=== PATIENT | female | born 1950 | race Caucasian/White ===

== ENCOUNTER 2018-01-18 14:19 | Emergency (ER) | payer MEDICARE, OTHER ==
[2018-01-18 14:52] LABS: #Basophils 0.1 thou/uL (0.0-0.2); #Lymphocytes 1.6 thou/uL (1.20-3.40); #Monocytes 0.2 thou/uL (0.11-0.59); #Neutrophils 2.1 thou/uL (1.40-6.50); %Basophils 2.5 % (0.0-1.0); %Eosinophils 1.1 % (0.0-10.0); %Monocytes 5.6 % (0.0-10.0); %Neutrophils 51.8 % (42.0-75.0); Hemoglobin 14.3 g/dL (12.0-16.0); Mean Corpuscular HGB CONC 35.2 g/dL (32.0-36.0); Mean Corpuscular Hemoglobin 30.1 pg (27.0-31.0); Mean Corpuscular Volume 85.5 fL (78.0-98.0); Mean Platelet Volume 5.2 fL (7.4-10.4); Platelet Count 287 thou/uL (130-400); RBC Distribution Width 12.5 % (11.5-14.5); Red Blood Cell (RBC) Count 4.74 mill/uL (4.20-5.40)
[2018-01-18 15:21] LABS: ALT (SGPT) Less than 7 U/L (8-55); AST (SGOT) 13 U/L (5-34); Alkaline Phosphatase 61 U/L (40-150); Anion Gap 15 mmol/L (10-20); BUN (Urea Nitrogen) 14 mg/dL (9.8-20.1); Bilirubin, Total 0.5 mg/dL (0.2-1.2); Calc. Creatinine Clearance 0 mL/min (70-130); Calcium 9.7 mg/dL (7.8-10.44); Carbon Dioxide 25 mmol/L (23-31); Chloride 95 mmol/L (98-107); Estimated GFR-MDRD Greater than 90; Globulin 2.6 g/dL (2.4-3.5); Glucose 88 mg/dL (80-115); Potassium 5.1 mmol/L (3.5-5.1); Protein, Total 6.6 g/dL (6.0-8.3); Sodium 130 mmol/L (136-145)
[2018-01-18 15:22] LABS: CKMB 1.7 ng/mL (0-6.6); Troponin I Less than 0.010 ng/mL (< 0.028)
== END 2018-01-18 17:04 | disposition home or self-care (01) ==
LOC: BURERS 14:19
DX: R41.82 Altered mental status, unspecified (principal); I10 Essential (primary) hypertension; J44.9 Chronic obstructive pulmonary disease, unspecified; E78.5 Hyperlipidemia, unspecified; F17.210 Nicotine dependence, cigarettes, uncomplicated; F31.9 Bipolar disorder, unspecified; F41.9 Anxiety disorder, unspecified; Z79.899 Other long term (current) drug therapy
CPT/HCPCS: 80053; 82553; 84484; 85025; 93005; 96360

== ENCOUNTER 2019-07-29 18:53 | Emergency (ER) | payer MEDICARE, OTHER ==
[2019-07-29] MEDS ORDERED: Morphine 4 MG/ML VIAL ONE (19:38)
== END 2019-07-29 20:04 | disposition home or self-care (01) ==
LOC: BURERS 18:53
DX: S29.012A Strain of muscle and tendon of back wall of thorax, initial encounter (principal); I10 Essential (primary) hypertension; J44.9 Chronic obstructive pulmonary disease, unspecified; E78.5 Hyperlipidemia, unspecified; F17.210 Nicotine dependence, cigarettes, uncomplicated; Z79.899 Other long term (current) drug therapy; X58.XXXA Exposure to other specified factors, initial encounter
CPT/HCPCS: 96372; 99283; J2270

== ENCOUNTER 2019-11-09 22:33 | Emergency (ER) | payer MEDICARE, OTHER ==
[2019-11-09] MEDS ORDERED: Ketorolac Tromethamine 30 MG/ML VIAL ONE (22:59)
--- NOTE | 2019-11-10 12:08 | RAD ---
CHEST 2 VIEWS: DATE: 11/09/2019. COMPARISON: Comparison is made with a and 08/14/2019 studies. FINDINGS: Emphysematous changes are present as usual. The lungs are clear. No effusions or acute infiltrates were seen. The heart size is normal. Regarding the ribs, some old healed fractures of the right 7th and 8th ribs are noted and visible on at least the prior study. The other ribs appear grossly intact. There may be an injury to the left 9th rib posterolaterally, but I am not convinced that it is new. Arteriosclerotic change is seen in the aorta. IMPRESSION: No definite acute findings. See above. POS: HOME
--- NOTE | 2019-11-10 12:10 | RAD ---
LUMBAR SPINE 3 VIEWS: DATE: 11/09/2019. FINDINGS: There is a mild compression of the L2 vertebral body, mainly involving the superior end plate. This was not present on a 2010 study. The bones are osteoporotic. There is no dislocation of vertebrae o r disk space narrowing. The SI joints were unremarkable. The aorta is densely calcified. There is a very large amount of fecal material in the colon. IMPRESSION: 1. Mild L2 compression fracture, age indeterminate but has occurred since 2009. 2. Severe constipation. CODE T POS: HOME
== END 2019-11-09 23:31 | disposition home or self-care (01) ==
LOC: BURERS 22:33
DX: M54.6 Pain in thoracic spine (principal); M54.5 Low back pain; G89.29 Other chronic pain; I10 Essential (primary) hypertension; J44.9 Chronic obstructive pulmonary disease, unspecified; E78.5 Hyperlipidemia, unspecified; F31.9 Bipolar disorder, unspecified; F41.9 Anxiety disorder, unspecified; F17.210 Nicotine dependence, cigarettes, uncomplicated; Z79.899 Other long term (current) drug therapy
CPT/HCPCS: 71046; 72100; 96372; J1885

== ENCOUNTER 2020-01-16 16:36 | Emergency (ER) | payer MEDICARE, OTHER ==
[2020-01-16] MEDS ORDERED: Ketorolac Tromethamine 30 MG/ML VIAL ONE (16:59)
== END 2020-01-16 17:22 | disposition home or self-care (01) ==
LOC: BURERS 16:36
DX: M54.6 Pain in thoracic spine (principal); E78.5 Hyperlipidemia, unspecified; J44.9 Chronic obstructive pulmonary disease, unspecified; F41.9 Anxiety disorder, unspecified; F31.9 Bipolar disorder, unspecified; F17.210 Nicotine dependence, cigarettes, uncomplicated; I10 Essential (primary) hypertension; Z71.6 Tobacco abuse counseling; Z79.51 Long term (current) use of inhaled steroids; Z79.899 Other long term (current) drug therapy
CPT/HCPCS: 96372; 99406; J1885

== ENCOUNTER 2020-05-11 17:51 | Emergency (ER) | payer MEDICARE, OTHER ==
[2020-05-11] MEDS ORDERED: methylPREDNISolone Sod Succ/PF 125 MG/2 ML VIAL ONE (18:27)
[2020-05-11 18:33] LABS: #Basophils 0.1 thou/uL (0.0-0.2); #Eosinphils 0.1 thou/uL (0.0-0.7); #Lymphocytes 2.1 thou/uL (1.20-3.40); #Monocytes 0.5 thou/uL (0.11-0.59); #Neutrophils 3.7 thou/uL (1.40-6.50); %Basophils 1.5 % (0.0-1.0); %Eosinophils 1.3 % (0.0-10.0); %Lymphocytes 32.1 % (21.0-51.0); %Monocytes 8.2 % (0.0-10.0); %Neutrophils 56.9 % (42.0-75.0); Hemoglobin 13.7 g/dL (12.0-16.0); Mean Corpuscular HGB CONC 32.1 g/dL (32.0-36.0); Mean Corpuscular Hemoglobin 31.6 pg (27.0-31.0); Mean Corpuscular Volume 98.5 fL (78.0-98.0); Mean Platelet Volume 5.5 fL (7.4-10.4); Platelet Count 278 thou/uL (130-400); RBC Distribution Width 12.2 % (11.5-14.5); Red Blood Cell (RBC) Count 4.35 mill/uL (4.20-5.40); White Blood Cell (WBC) Count 6.5 thou/uL (4.8-10.8)
[2020-05-11 18:46] LABS: ALT (SGPT) 17 U/L (8-55); AST (SGOT) 17 U/L (5-34); Albumin 3.8 g/dL (3.4-4.8); Alkaline Phosphatase 76 U/L (40-110); Anion Gap 14 mmol/L (10-20); BUN (Urea Nitrogen) 16 mg/dL (9.8-20.1); Bilirubin, Total 0.3 mg/dL (0.2-1.2); Calc. Creatinine Clearance 0 mL/min (70-130); Calcium 9.4 mg/dL (7.8-10.44); Carbon Dioxide 24 mmol/L (23-31); Chloride 107 mmol/L (98-107); Estimated GFR-MDRD 73; Globulin 2.2 g/dL (2.4-3.5); Glucose 124 mg/dL (83-110); Sodium 141 mmol/L (136-145)
--- NOTE | 2020-05-11 19:02 | RAD ---
PORTABLE CHEST: 05/11/20 An AP portable film at 1814 is compared with a 04/14/20 study. The heart is normal in size. The lungs are quite hyperexpanded but clear. No acute infiltrate was see n to suggest pneumonia. The aorta is mildly ectatic as usual. IMPRESSION: Emphysematous changes but no acute findings. POS: HOME
== END 2020-05-11 19:25 | disposition home or self-care (01) ==
LOC: BURERS 17:51
DX: J44.1 Chronic obstructive pulmonary disease with (acute) exacerbation (principal); I10 Essential (primary) hypertension; E78.5 Hyperlipidemia, unspecified; F31.9 Bipolar disorder, unspecified; F41.9 Anxiety disorder, unspecified; F17.210 Nicotine dependence, cigarettes, uncomplicated; Z79.899 Other long term (current) drug therapy
CPT/HCPCS: 36415; 71045; 80053; 83605; 83880; 84484; 85025; 85379; 87040; 93005; 94760; 96374; J2930

== ENCOUNTER 2020-07-19 07:55 | Observation (INO) | payer MEDICARE, OTHER ==
[2020-07-19] MEDS ORDERED: Albuterol Sulfate 1.25 MG/3 ML NEB ONE ×2 (08:23→09:08)
[2020-07-19] MEDS ORDERED: Acetaminophen 500 MG TAB ONE (08:28)
[2020-07-19] MEDS ORDERED: methylPREDNISolone Sod Succ/PF 125 MG/2 ML VIAL ONE (08:29)
[2020-07-19] MEDS ORDERED: Magnesium 2 GM/50 ML BAG (IN WATER) ONE (08:30)
[2020-07-19 08:44] LABS: Hemoglobin 16.3 g/dL (12.0-16.0); Mean Corpuscular HGB CONC 32.2 g/dL (32.0-36.0); Mean Corpuscular Hemoglobin 31.5 pg (27.0-31.0); Mean Corpuscular Volume 97.9 fL (78.0-98.0); Mean Platelet Volume 5.7 fL (7.4-10.4); Platelet Count 303 thou/uL (130-400); RBC Distribution Width 12.3 % (11.5-14.5); Red Blood Cell (RBC) Count 5.19 mill/uL (4.20-5.40); White Blood Cell (WBC) Count 10.2 thou/uL (4.8-10.8)
[2020-07-19 08:46] LABS: ALT (SGPT) 18 U/L (8-55); AST (SGOT) 19 U/L (5-34); Albumin 4.6 g/dL (3.4-4.8); Alkaline Phosphatase 90 U/L (40-110); Anion Gap 17 mmol/L (10-20); BUN (Urea Nitrogen) 11 mg/dL (9.8-20.1); Bilirubin, Total 0.5 mg/dL (0.2-1.2); Calc. Creatinine Clearance 0 mL/min (70-130); Calcium 9.7 mg/dL (7.8-10.44); Carbon Dioxide 26 mmol/L (23-31); Chloride 104 mmol/L (98-107); Glucose 97 mg/dL (83-110); Potassium 4.6 mmol/L (3.5-5.1); Protein, Total 7.6 g/dL (6.0-8.3); Sodium 142 mmol/L (136-145)
[2020-07-19] MEDS ORDERED: traMADol HCl 50 MG TAB ONE (09:07)
[2020-07-19] MEDS ORDERED: Ondansetron PF 4 MG/2 ML Vial ONE (09:08)
[2020-07-19 09:13] LABS: Band 7 % (5-11); Eosinophils 1 % (0-10); Lymphocytes 10 % (21-51); MDiff Complete? YES; Monocytes 5 % (0-10); Neutrophil 75 % (42-75)
[2020-07-19 09:22] LABS: Base Excess-Venous -0.7 mmol/L (-2.0 to 3.0); Bicarbonate (HCO3v) 23.8 mmol/L (22.0-28.0); CO2 Tension (PvCO2) 38.2 mmHg (40.0-50.0); Calcium, Ionized 1.04 mmol/L (1.15-1.33); Chloride 105 mmol/L (98-107); Hemoglobin - Calc 15.4 g/dL (12.0-16.0); Potassium 4.2 mmol/L (3.5-5.1); Sodium 135 mmol/L (138-145); vO2 Saturation-calc 99.7 % (60.0-85.0)
[2020-07-19] MEDS ORDERED: Levofloxacin 500 mg/D5W 100 ml Premix Bag ONE (09:50)
[2020-07-19 10:42] LABS: SARS-CoV-2 NAA Rapid Test Not Detected (NotDetected)
[2020-07-19] MEDS ORDERED: Propranolol HCl 20 MG TAB PO PRN (12:35)
[2020-07-19] MEDS ORDERED: Non-Formulary Item 1 EACH (Albuterol Sulfate [Proair Hfa] 8.5 GM Hfa.Aer.Ad) INH PRN (12:35)
[2020-07-19] MEDS ORDERED: Albuterol 200 PUFF (6.7GM INHALER) INH PRN (12:53)
[2020-07-19] MEDS ORDERED: Ondansetron PF 4 MG/2 ML Vial IVP PRN (14:10)
[2020-07-19] MEDS ORDERED: Ondansetron ODT 4 MG TAB PO PRN (14:11)
[2020-07-19] MEDS ORDERED: Acetaminophen 325 MG TAB PO PRN (14:12)
[2020-07-19] MEDS ORDERED: HYDROcodone/Acetaminophen 5/325 mg Tablet PO SCH (14:30)
[2020-07-19] MEDS: Nicotine 14 MG PATCH TOP SCH (15:24)
--- NOTE | 2020-07-19 17:14 | RAD ---
PORTABLE CHEST: 07/19/20 An AP portable film at 0859 is compared with a 07/03/20 study. COPD is present with flattening of the diaphragm. No acute infiltrate or effusion was seen. There is no vascular congestion or edema. The heart is not enlarged. At most, there may be some very minor ate lectasis on the right. IMPRESSION: COPD with no significant acute findings. POS: HOME
[2020-07-19] MEDS ORDERED: chlorproMAZINE HCl 12.5 MG in Sodium Chloride 0.9% 50 ML IVPB PRN (17:53)
[2020-07-19] MEDS ORDERED: diphenhydrAMINE 25 MG CAP PO PRN (17:55)
[2020-07-19] MEDS ORDERED: Mometasone/Formoterol 200/5 60 PUFF INH SCH (19:00)
[2020-07-19] MEDS ORDERED: Prochlorperazine 10 MG/2 ML VIAL IVP PRN (19:10)
[2020-07-19] MEDS: Mometasone/Formoterol 200/5 60 PUFF INH SCH (20:30)
[2020-07-19] MEDS: Benztropine 1 MG TAB PO SCH (20:33)
[2020-07-19] MEDS: traMADol HCl 50 MG TAB PO PRN (20:33)
[2020-07-19] MEDS ORDERED: Atorvastatin Calcium 10 MG TAB PO SCH ×2 (21:00)
[2020-07-19] MEDS ORDERED: Non-Formulary Item 1 EACH (Benztropine Mesylate [Benztropine Mesylate] 0.5 MG Tablet) PO SCH (21:00)
[2020-07-19] MEDS ORDERED: Montelukast Sodium 10 mg Tablet PO SCH (21:00)
[2020-07-19] MEDS: methylPREDNISolone Sod Succ/PF 125 MG/2 ML VIAL IVP SCH (22:18)
--- NOTE | 2020-07-20 00:17 | HP ---
CHIEF COMPLAINT: Shortness of breath. HISTORY OF PRESENT ILLNESS: Ms. Dowd is a 70-year-old female who was complaining of increased shortness of breath in the context of her usual COPD over the last week, worse this morning. She presented to the emergency room for further care. Chest x-ray shows COPD without acute infiltrates. She was rather tachypneic on presentation, but was able to maintain her sats with her home O2 regimen of 2 L. She has had some yellow sputum, but denies hemoptysis. She has not had fever or chills. No nausea, vomiting, diarrhea or any COVID positive contacts known. She is a smoker, but states that she stopped a week ago secondary to her symptoms. In the emergency department, she was given Tylenol for headache, normal saline, albuterol nebs, 125 mg Solu-Medrol IV, another DuoNeb, magnesium sulfate, tramadol for headache, other albuterol inhalation, IV Zofran, and Levaquin. Her lab results are unremarkable. PAST MEDICAL HISTORY: 1. Chronic obstructive pulmonary disease. 2. Hypertension. 3. Hyperlipidemia. 4. Tobacco abuse. 5. Marijuana abuse. 6. Anxiety. 7. Bipolar disorder. 8. Depression. PAST SURGICAL HISTORY: 1. Left breast biopsy. 2. Vulvectomy. 3. Appendectomy. 4. Carpal tunnel on the right. 5. Hysterectomy. 6. Oophorectomy of the left ovary. 7. Left knee arthroscopic surgery x2. 8. Tonsillectomy. 9. Neck fusion. 10. Bilateral hip césar placements. SOCIAL HISTORY: The patient smokes approximately half a pack of cigarettes per day. She smokes marijuana on occasion. She denies alcohol or other illicit drugs. FAMILY HISTORY: Noncontributory. REVIEW OF SYSTEMS: CONSTITUTIONAL: Positive for fatigue and malaise. Negative chills or fever. EYES: Denies blurring of vision. ENT: Complains of rhinorrhea. Denies sore throat or nasal congestion. CARDIOVASCULAR: Denies chest tightness, although she has had some discomfort associated with her cough only. No hemoptysis. No wheezing. Positive sputum, yellow in color. GI: Denies nausea, vomiting, diarrhea, constipation, blood in stool. GENITOURINARY: Denies dysuria or incontinence. SKIN: Denies rash. NEUROLOGIC: Denies weakness, numbness. No confusion. She has a generalized headache. HEMATOLOGIC: Denies easy bleeding or bruising. OBJECTIVE: VITAL SIGNS: On admission in the ED, blood pressure 170/88, heart rate 101, respirations 24, temperature 98.5, 8/10 pain, 98% on 2 L of oxygen. At my exam; temperature 98.1, pulse 80, respirations 18, O2 saturation 95% on 2 L nasal cannula, blood pressure 151/68. GENERAL: Well-developed, thin female, sitting up on the bedside. Alert and oriented x4, in no acute distress. HEENT: Normocephalic, atraumatic. Pupils equally round and reactive to light and accommodation, extraocular muscles intact. Nares are patent without discharge. Tongue protrudes in the midline. NECK: Supple without lymphadenopathy, thyromegaly, JVD, or bruit. HEART: Regular rate and rhythm with distant sounds. No murmurs, clicks, rubs, or gallops. LUNGS: Diminished air entry throughout with isolated expiratory wheeze at the right upper lobe. ABDOMEN: Positive bowel sounds in all 4 quadrants. Soft, nontender, nondistended. No masses, guarding, or rebound tenderness. EXTREMITIES: No cyanosis, clubbing, edema. NEUROLOGIC: Cranial nerves 2 through 12 grossly intact without focal deficits. LABORATORY DATA: White count 10.2, hemoglobin 16.3, hematocrit 50.8, platelets 303, sodium 142, potassium 4.6, chloride 104, bicarb 26, BUN 11, creatinine 0.7, glucose 97, calcium 9.7, T bilirubin 0.5, normal LFTs, troponin I less than 0.010, B type natriuretic peptide 108.8. Influenza A and B and SARS-CoV-2 rapid RNA not detected. IMAGING: Chest x-ray shows COPD with no significant acute findings. ASSESSMENT AND PLAN: 1. Acute exacerbation of chronic obstructive pulmonary disease. The patient was given 125 Solu-Medrol in the ER and will continue this 60 mg IV q.6 hours. We will continue DuoNebs and her home medications. We will give O2 at 2 L/minute and titrate as needed to maintain her sats in the low 90s. We will convert to oral prednisone when able. Cover with Levaquin daily. 2. Generalized headache. The patient has a history of this in the past for which she has taken Demerol and other narcotics. She received tramadol and Tylenol in the ER without improvement. I ordered a hydrocodone earlier and this did not help either. We will try chlorpromazine and Benadryl and see if this improves things. We will continue tramadol and Tylenol p.r.n. for breakthrough pain. 3. Hyperlipidemia. The patient will be continued on her statin therapy. 4. Bipolar disorder/depression/anxiety. The patient will be continued on her Cogentin, fluoxetine. 5. Hypertension. The patient will be continued on her propranolol. 6. Tobacco abuse. The patient has been given a nicotine patch and smoking cessation will be advised. 7. Prophylaxis. The patient has been placed on pantoprazole per her home regimen and we will give SCDs. May ambulate as tolerated. 8. Code status, full code. Job ID: [id number] MTDD
[2020-07-20] MEDS: methylPREDNISolone Sod Succ/PF 125 MG/2 ML VIAL IVP SCH ×2 (05:37→15:16)
[2020-07-20] MEDS: Benztropine 1 MG TAB PO SCH (08:56)
[2020-07-20] MEDS: Mometasone/Formoterol 200/5 60 PUFF INH SCH (08:59)
[2020-07-20] MEDS ORDERED: Non-Formulary Item 1 EACH (Fluticasone/Vilanterol [Breo Ellipta 200-25 Mcg Inh] 1 EACH Bl INH SCH (09:00)
[2020-07-20] MEDS ORDERED: Lisinopril 10 MG TAB PO SCH (09:00)
[2020-07-20] MEDS ORDERED: ATORVASTATIN CALCIUM 20 MG PO SCH (09:00)
[2020-07-20] MEDS ORDERED: Non-Formulary Item 1 EACH (Cholecalciferol (Vitamin D3) [Vitamin D3] 50 MCG Capsule) PO SCH (09:00)
[2020-07-20] MEDS ORDERED: FLUOXETINE HCL 20 MG PO SCH (09:00)
[2020-07-20] MEDS ORDERED: Vit A,C & E/Lutein/Minerals Tablet PO SCH (09:00)
[2020-07-20] MEDS ORDERED: Tamsulosin HCl 0.4 MG CAP PO SCH (09:00)
[2020-07-20] MEDS ORDERED: FLUoxetine HCl 10 MG CAP PO SCH (09:00)
[2020-07-20] MEDS ORDERED: Cholecalciferol 1,000 UNITS (25 MCG) TAB PO SCH (09:00)
[2020-07-20] MEDS ORDERED: [UNRECOGNIZED DRUG - OTHER] PO SCH (09:00)
[2020-07-20] MEDS: traMADol HCl 50 MG TAB PO PRN (09:08)
[2020-07-20] MEDS: FLU VACC QS2020-21(65YR UP)/PF 240 MCG/0.7 ML SYRINGE IM ONE ×2 (12:14→12:24)
[2020-07-20 16:28] VITALS: BP 162/74
[2020-07-20 16:29] VITALS: TEMP 98.7
[2020-07-20] MEDS: Nicotine 14 MG PATCH TOP SCH (16:33)
--- NOTE | 2020-07-21 01:24 | DIS ---
DATE OF ADMISSION: 07/19/2020 DATE OF DISCHARGE: 07/20/2020 ADMISSION DIAGNOSES: 1. Chronic obstructive pulmonary disease exacerbation. 2. Acute respiratory failure with hypoxia. 3. Hypertension. 4. Chronic headache. 5. Tobacco abuse. 6. Bipolar disorder. 7. Hyperlipidemia. 8. Mood disorder. DISCHARGE DIAGNOSES: 1. Chronic obstructive pulmonary disease exacerbation. 2. Acute respiratory failure with hypoxia. 3. Hypertension. 4. Chronic headache. 5. Tobacco abuse. 6. Bipolar disorder. 7. Hyperlipidemia. 8. Mood disorder. PROCEDURES: 1. Chest x-ray performed on day of admission shows COPD with no acute findings. 2. Influenza A and B and SARS-CoV-2 rapid RNA not detected. 3. CBC significant for hemoglobin 16.3, hematocrit 50.8, otherwise unremarkable. 4. Chemistry profile unremarkable. 5. B-type natriuretic peptide 108.8, which is down from the patient's baseline of 311.1 previously. For history and physical, please see dictated report from the date of admission. OBSERVATION COURSE: Ms. Dowd is a 70-year-old female, who came in with worsening shortness of breath, cough with scant yellow sputum production for approximately 1 week. She was on her home O2 requirement of 2 L on admission but was tachypneic and given [id number] neb treatments. She was provided Levaquin IV 500 mg for antimicrobial coverage and placed on Solu-Medrol. The following day, she is breathing much better. Her lungs are clear to auscultation without wheezes with diminished air entry throughout that is likely chronic. She will be discharged on a five-day additional course of Levaquin and a two-week prednisone taper. She also had some elevated blood pressure while here. Her lisinopril will be increased to 20 mg daily and can be followed up with her primary care physician for repeat. Systolic blood pressures ranged 130s to 150s during her hospital stay. The patient has significant tobacco abuse history and has elevated hemoglobin, hematocrit. She has been extensively counseled on smoking cessation. She was provided a nicotine patch while here. She reports that she has nicotine patches at home that she will continue as an outpatient. The patient has a history of chronic headaches, for which she has presented to the emergency department for treatment in the past. We attempted Tylenol, tramadol, hydrocodone, chlorpromazine, and Benadryl with no benefit. The patient smokes marijuana for her headaches and takes ibuprofen at home. She rates this headache as mild and is generalized. She can follow up with her primary care doctor regarding further attempted treatment as an outpatient. Her neurological exam is completely normal. Her blood pressure may be contributing as well as the IV steroids, so this should improve with outpatient regimen. She has been instructed to return if it becomes more severe or if she has any concurrent neurological symptoms. Regarding her hypoxia, she has 2 L baseline O2 requirement at home and has both a concentrator and portable O2. At her discharge examination, her O2 saturation was 97% on 2 L/min. Her respiratory rate has been stable at 18 to 20 breaths per minute, and she is no longer tachypneic or using accessory muscles. Regarding her other chronic medical problems, her regimen remains the same. DISCHARGE EXAMINATION: VITAL SIGNS: Temperature 96.8, pulse 97, blood pressure 153/69, respirations 20, O2 saturation 97% on 2 L nasal cannula. GENERAL: Well-developed, thin, female, in no acute distress. Speaks in complete sentences. HEENT: Normocephalic, atraumatic. Pupils equally round and reactive to light and accommodation, extraocular muscles intact. Nares are patent without discharge. CHEST: Regular rate and rhythm with normal S1, S2. No murmurs, clicks, rubs, or gallops, but with distant heart sounds. LUNGS: Diminished throughout but clear to auscultation without crackles or wheezes. ABDOMEN: Positive bowel sounds in all four quadrants. Soft, nontender, and nondistended. No masses, guarding, or rebound tenderness. EXTREMITIES: No cyanosis, clubbing, or edema. NEUROLOGIC: Cranial nerves II through XII grossly intact without focal deficits. LABS AND IMAGING: No new lab or imaging today. DISPOSITION: Discharged to home. CONDITION: Good. DISCHARGE INSTRUCTIONS: Follow up with primary care physician Dr. Richar Murillo in approximately 10 days to reassess the need for further prednisone taper and blood pressure reassessment on new dose. Job ID: [id number]
== END 2020-07-20 16:47 | disposition home or self-care (01) ==
LOC: BURERS 07:55 → UNDOADMOB 09:50 → BURMED 09:50
PROVIDERS: ADMIT Family Medicine; ATTEND Family Medicine
DX: J44.1 Chronic obstructive pulmonary disease with (acute) exacerbation (principal); J96.01 Acute respiratory failure with hypoxia; I10 Essential (primary) hypertension; R51.9 Headache, unspecified; F17.210 Nicotine dependence, cigarettes, uncomplicated; F31.9 Bipolar disorder, unspecified; E78.5 Hyperlipidemia, unspecified; F41.9 Anxiety disorder, unspecified; Z79.899 Other long term (current) drug therapy; Z88.0 Allergy status to penicillin; Z88.5 Allergy status to narcotic agent; Z88.6 Allergy status to analgesic agent; Z88.8 Allergy status to other drugs, medicaments and biological substances; Z20.822 Contact with and (suspected) exposure to COVID-19
CPT/HCPCS: 0240U; 71045; 80053; 82330; 82803; 83880; 84484; 85025; 90471; 90662; 90732; 94640; 94664; 96365; 96367; 96375; 96376; G0008; G0009; G0378; J1956; J2405; J2930; J3475; J7620; Q0163

== ENCOUNTER 2020-07-21 10:26 | Inpatient (IN) | payer MEDICARE, OTHER ==
[2020-07-21] MEDS ORDERED: Magnesium 2 GM/50 ML BAG (IN WATER) ONE (10:54)
[2020-07-21] MEDS ORDERED: Albuterol Sulfate 1.25 MG/3 ML NEB ONE (10:54)
[2020-07-21 11:59] LABS: #Lymphocytes 1.1 thou/uL (1.20-3.40); #Monocytes 0.6 thou/uL (0.11-0.59); #Neutrophils 11.9 thou/uL (1.40-6.50); %Basophils 0.4 % (0.0-1.0); %Lymphocytes 7.7 % (21.0-51.0); %Monocytes 4.1 % (0.0-10.0); %Neutrophils 87.8 % (42.0-75.0); Hemoglobin 14.5 g/dL (12.0-16.0); Mean Corpuscular HGB CONC 31.3 g/dL (32.0-36.0); Mean Corpuscular Hemoglobin 30.9 pg (27.0-31.0); Mean Corpuscular Volume 98.6 fL (78.0-98.0); Mean Platelet Volume 6.4 fL (7.4-10.4); Platelet Count 285 thou/uL (130-400); RBC Distribution Width 12.3 % (11.5-14.5); Red Blood Cell (RBC) Count 4.69 mill/uL (4.20-5.40); White Blood Cell (WBC) Count 13.6 thou/uL (4.8-10.8)
[2020-07-21 12:10] LABS: Anion Gap 13 mmol/L (10-20); BUN (Urea Nitrogen) 12 mg/dL (9.8-20.1); Calc. Creatinine Clearance 0 mL/min (70-130); Calcium 9.3 mg/dL (7.8-10.44); Carbon Dioxide 29 mmol/L (23-31); Chloride 102 mmol/L (98-107); Glucose 90 mg/dL (83-110); Potassium 4.3 mmol/L (3.5-5.1); Sodium 140 mmol/L (136-145)
[2020-07-21 13:10] LABS: SARS-CoV-2 NAA Rapid Test Not Detected (NotDetected)
[2020-07-21] MEDS ORDERED: Albuterol Sulfate 2.5 mg/3 ml Neb NEB PRN (13:32)
[2020-07-21] MEDS ORDERED: Bisacodyl 5 MG TAB PO PRN (13:32)
[2020-07-21] MEDS ORDERED: Ondansetron ODT 4 MG TAB PO PRN (13:32)
[2020-07-21] MEDS ORDERED: Senokot S 8.6-50 MG TAB PO PRN (13:32)
[2020-07-21] MEDS ORDERED: Levofloxacin 750 mg/D5W 500 MG in Premix Bag 1 BAG IVPB SCH (13:45)
[2020-07-21] MEDS ORDERED: Promethazine 25 MG TAB PO PRN (13:58)
[2020-07-21] MEDS: Lisinopril 20 MG TAB PO SCH (15:43)
[2020-07-21] MEDS: Nicotine 14 MG PATCH TD SCH (15:45)
[2020-07-21] MEDS: Mometasone/Formoterol 200/5 60 PUFF INH SCH (18:28)
[2020-07-21] MEDS: methylPREDNISolone Sod Succ 40 MG VIAL IVP SCH (18:28)
--- NOTE | 2020-07-21 20:11 | HP ---
CHIEF COMPLAINT: Shortness of breath and cough. HISTORY OF THE PRESENT ILLNESS: Ms. Dowd is a 70-year-old female with a history of COPD, hypertension, and tobacco abuse, who was in observation here at [facility] on July 19. She was discharged the following day for treatment of COPD exacerbation, acute, with chronic hypoxia. She was treated with Levaquin and IV steroids, neb treatments, O2 p.r.n., and was improved on the date of discharge with diminished cough, no shortness of breath and lungs were clear to auscultation. She was given a prescription for Levaquin and a prednisone taper for 2 weeks, as well as an increased dose of her lisinopril as her blood pressure ran high while she was here. She reports that upon returning home, she promptly removed her nicotine transdermal patch and attempted to smoke. She estimates that she tried to smoke approximately 7 to 10 cigarettes, but was unable to do so due to recurrence of symptoms. Subsequently, her cough, sputum production, and shortness of breath increased. She reports her sputum is thicker now. She has a past medical history of endotracheal intubation for COPD. During her prior admission, her chest x-ray was without acute infiltrates. She denies any COVID positive contacts and was screened during that admission and was negative for COVID as well as influenza A and B. She presented today tachypneic and required 4 L to improve her O2. With neb treatments in the emergency room, magnesium, normal saline, and Levaquin, she was able to be put back on her home O2 rate of 2 L/min. She is being admitted for further treatment of acute exacerbation of COPD with [id number] hypoxic respiratory failure. Her COVID repeat screen today was negative. PAST MEDICAL HISTORY: 1. COPD. 2. Hypertension. 3. Hyperlipidemia. 4. Tobacco abuse. 5. Marijuana abuse. 6. Anxiety. 7. Bipolar disorder. 8. Depression. 9. Chronic headaches. PAST SURGICAL HISTORY: 1. Left breast biopsy. 2. Vulvectomy. 3. Appendectomy. 4. Carpal tunnel on the right. 5. Hysterectomy. 6. Oophorectomy of the left ovary. 7. Left knee arthroscopic surgery x2. 8. Tonsillectomy. 9. Neck fusion. 10. Bilateral hip césar placements. SOCIAL HISTORY: The patient reports she smokes approximately half a pack of cigarettes per day. She smokes marijuana on occasion to help with her headaches. She denies alcohol or other illicit drugs. FAMILY HISTORY: Noncontributory. ALLERGIES: ALEVE, WHICH CAUSES HIVES; DEMEROL; MEPERIDINE; NAPROXEN; PENICILLIN, WHICH CAUSES HIVES; SUMATRIPTAN, WHICH CAUSES SHORTNESS OF BREATH. MEDICATIONS: 1. Tamsulosin 0.4 mg p.o. daily. 2. Propranolol HCl 20 mg p.o. b.i.d. 3. Pantoprazole one p.o. daily. 4. Multivitamin one p.o. daily. 5. Singulair 10 mg p.o. at bedtime. 6. Myrbetriq 25 mg p.o. daily. 7. Lisinopril 20 mg p.o. daily. 8. DuoNeb 3 mL nebulized q.6 hours p.r.n. 9. Breo Ellipta 200-25 mcg inhaled one puff daily. 10. Fluoxetine 40 mg p.o. daily. 11. Vitamin D3 of 2000 units p.o. daily. 12. Benztropine mesylate 0.5 mg p.o. b.i.d. 13. Atorvastatin calcium 20 mg p.o. daily. 14. ProAir HFA two puffs inhaled q.i.d. p.r.n. 15. Acetaminophen 650 mg p.o. q.4 hours p.r.n. 16. The patient had prednisone taper this still at the pharmacy, so she did not start it as well as prescription for Levaquin. REVIEW OF SYSTEMS: CONSTITUTIONAL: Positive for fatigue and malaise. Negative for chills or fever. EYES: Denies blurring of vision or conjunctival injection or drainage. ENT: She did have some rhinorrhea initially on admission. This is no longer present. She denies sore throat or nasal congestion. CARDIOVASCULAR: Denies chest pain or palpitations. RESPIRATORY: Denies hemoptysis. Positive wheezing. Positive yellow sputum. Positive shortness of breath with exertion. GI: Denies nausea, vomiting, diarrhea, constipation, or blood in her stool. GENITOURINARY: Denies dysuria or incontinence. SKIN: Denies rash. NEUROLOGIC: Denies weakness, numbness, or confusion. She still has chronic generalized headache. HEMATOLOGIC: Denies easy bleeding or bruising. LYMPHATIC: Denies any swelling or lymphadenopathy. PHYSICAL EXAMINATION: VITAL SIGNS: On presentation to the emergency room; blood pressure 175/102, pulse 87, respirations 26, temperature 98.0, saturations 100% on 2 L O2. GENERAL: Well-developed thin female, who is alert and oriented x3. She is in mild distress secondary to cough. HEENT: Normocephalic, atraumatic. Pupils are equal, round, and reactive to light and accommodation. Extraocular muscles intact. Nares are patent without discharge. OP is clear. NECK: Supple without lymphadenopathy, thyromegaly, JVD, or bruit. CARDIOVASCULAR: Regular rate and rhythm with distant heart sounds. No murmurs. LUNGS: Diminished air entry throughout with bibasilar expiratory wheezing and increased expiratory to inspiratory ratio. She has barrel chest appearance. ABDOMEN: Positive bowel sounds in all four quadrants. Soft, nontender, and nondistended. No masses, guarding, or rebound tenderness. EXTREMITIES: No cyanosis, clubbing, or edema. NEUROLOGIC: Cranial nerves 2 through 12 grossly intact. No focal deficits. LABORATORY DATA: White count 13.6 with 88% neutrophils, 7.7% lymphocytes, hemoglobin 14.5, hematocrit 46.2, platelets 285. Sodium 140, potassium 4.3, chloride 102, bicarb 29, BUN 12, creatinine 0.65, glucose 90, calcium 9.3. Influenza A, B, and SARS-CoV-2 rapid RNA PCR negative. ASSESSMENT AND PLAN: 1. Acute exacerbation of chronic obstructive pulmonary disease with [id number] hypoxic respiratory failure without hypercapnia. The patient again will be admitted to the floor and placed on IV Levaquin to continue her course. We will continue Solu-Medrol at 60 mg IV q.6 hours p.r.n. and convert to oral when able. Continue neb treatments of DuoNeb q.6 hours and albuterol q.2 hours p.r.n. We will continue her home regimen for chronic obstructive pulmonary disease. Give supportive O2. 2. Hypertension. The patient did take her increased dose of lisinopril this morning. She will be given hydralazine p.r.n. for elevated blood pressure while we are monitoring. She will be continued on her other home blood pressure medication. 3. Hyperlipidemia. The patient will be continued on her statin. 4. Tobacco abuse. I spent extensive time counseling her today and she states that she just needs to make her mind up to quit. She has tried Chantix in the past and she reports it works, but she did not allow it to continue to work due to noncompliance. We will give her nicotine patch while here and continue with tobacco cessation counseling. 5. Generalized headache. We will give the patient Tylenol for mild pain, hydrocodone 5/325 for moderate and hydrocodone 10/325 for severe pain p.r.n. 6. Bipolar disorder/depression/anxiety. The patient will be continued on her home medications. She reports some insomnia with the steroids and will give hydroxyzine 25 mg before bedtime tonight. 7. Prophylaxis. The patient will be placed on pantoprazole per her home regimen and we will place SCDs. May ambulate ad whitney. 8. Code status: Full code. Job ID: [id number] MTDD
[2020-07-21] MEDS: Atorvastatin Calcium 10 MG TAB PO SCH (20:42)
[2020-07-21] MEDS: guaiFENesin ER 600 MG TAB PO SCH (20:42)
[2020-07-21] MEDS: hydrOXYzine 25 MG TAB PO SCH (20:42)
[2020-07-21] MEDS: Benztropine 1 MG TAB PO SCH (20:42)
[2020-07-21] MEDS: Montelukast Sodium 10 mg Tablet PO SCH (20:43)
[2020-07-21] MEDS ORDERED: Famotidine 20 MG TAB PO SCH (21:00)
[2020-07-22] MEDS: methylPREDNISolone Sod Succ 40 MG VIAL IVP SCH ×4 (00:10→17:33)
[2020-07-22 05:15] LABS: #Basophils 0.1 thou/uL (0.0-0.2); #Lymphocytes 0.7 thou/uL (1.20-3.40); #Monocytes 0.3 thou/uL (0.11-0.59); %Basophils 0.7 % (0.0-1.0); %Eosinophils 0.1 % (0.0-10.0); %Lymphocytes 7.2 % (21.0-51.0); %Monocytes 3.3 % (0.0-10.0); %Neutrophils 88.7 % (42.0-75.0); Hemoglobin 14.7 g/dL (12.0-16.0); Mean Corpuscular HGB CONC 32.7 g/dL (32.0-36.0); Mean Corpuscular Hemoglobin 31.8 pg (27.0-31.0); Mean Corpuscular Volume 97.5 fL (78.0-98.0); Platelet Count 293 thou/uL (130-400); Red Blood Cell (RBC) Count 4.62 mill/uL (4.20-5.40); White Blood Cell (WBC) Count 10.1 thou/uL (4.8-10.8)
[2020-07-22 05:29] LABS: Anion Gap 16 mmol/L (10-20); BUN (Urea Nitrogen) 22 mg/dL (9.8-20.1); Calc. Creatinine Clearance 54 mL/min (70-130); Calcium 9.4 mg/dL (7.8-10.44); Carbon Dioxide 24 mmol/L (23-31); Chloride 100 mmol/L (98-107); Glucose 165 mg/dL (83-110); Potassium 4.4 mmol/L (3.5-5.1); Sodium 136 mmol/L (136-145)
[2020-07-22] MEDS: Propranolol HCl 20 MG TAB PO PRN (05:45)
[2020-07-22] MEDS: Cholecalciferol 1,000 UNITS (25 MCG) TAB PO SCH (09:12)
[2020-07-22] MEDS: guaiFENesin ER 600 MG TAB PO SCH ×2 (09:12→20:25)
[2020-07-22] MEDS: Vit A,C & E/Lutein/Minerals Tablet PO SCH (09:13)
[2020-07-22] MEDS: FLUoxetine HCl 10 MG CAP PO SCH (09:13)
[2020-07-22] MEDS: Benztropine 1 MG TAB PO SCH ×2 (09:14→20:27)
[2020-07-22] MEDS: Tamsulosin HCl 0.4 MG CAP PO SCH (09:14)
[2020-07-22] MEDS: HYDROcodone/Acetaminophen 10/325 mg Tablet PO PRN ×2 (09:32→20:29)
[2020-07-22] MEDS: Mometasone/Formoterol 200/5 60 PUFF INH SCH ×2 (09:34→17:38)
--- NOTE | 2020-07-22 13:03 | PDOC.BPN ---
- Brief Progress Note Encounter Date: 07/22/20 Encounter Time: 12:54 Pt. was seen and examined at the bedside. She is still coughing quite a bit, and her sputum is still light green in color without much change. She is ex pectorating more today. Dyspnea persists. O2 requirement has been stable. Both nursing and patient deny any new problems. Selected Entries 07/22/20 10:00 Pulse Rhythm Regular Respiratory Normal Effort Non-Labored Temperature Oral Source Temperature 96.0 F L Pulse Rate 84 Blood Pressure 155/70 H [Semi-Fowlers] Respiratory 20 Rate O2 Sat by Pulse 96 Oximetry Oxygen Flow 1 Rate Oxygen Delivery Nasal Cannula Method Hospitalist ROS - Review of Systems Constitutional: reports: weakness. denies: fever, chills, sweats, malaise Eyes: denies: vision change ENT: denies: nose congestion Respiratory: reports: cough, shortness of breath, SOB with excertion, sputum, wheezing. denies: dry, hemoptysis, pleuritic pain Cardiovascular: denies: chest pain, palpitations, orthopnea, paroxysmal noc. dyspnea Gastrointestinal: denies: nausea, vomiting, abdominal pain, diarrhea, constipation Genitourinary: denies: dysuria Skin: denies: rash Neurological: denies: weakness, numbness, change in speech, confusion - Medication Medications: Active Medications Generic Name Dose Route Start Last Admin Trade Name Freq PRN Reason Stop Dose Admin Hydrocodone Bitart/Acetaminophen 1 tab 07/21/20 13:32 07/22/20 09:32 Hydrocodone/Acetaminophen 10/325 Mg Tablet PO 1 tab Q4H PRN Administration Severe Pain (7-10) Albuterol Sulfate 2.5 mg 07/21/20 13:32 07/21/20 14:16 Albuterol Sulfate 2.5 Mg/3 Ml Neb NEB 2.5 mg Q2H PRN Administration SOB &/or Wheezing Albuterol/Ipratropium 3 ml 07/21/20 19:00 07/22/20 12:49 Ipratropium/Albuterol Sulfate 3 Ml Neb NEB 3 ml [id number] ZORAIDA Administration Atorvastatin Calcium 20 mg 07/21/20 21:00 07/21/20 20:42 Atorvastatin Calcium 10 Mg Tab PO 20 mg HS ZORAIDA Administration Benztropine Mesylate 0.5 mg 07/21/20 21:00 07/22/20 09:14 Benztropine 1 Mg Tab PO 0.5 mg BID ZORAIDA Administration Cholecalciferol 2,000 units 07/22/20 09:00 07/22/20 09:12 Cholecalciferol 1,000 Units (25 Mcg) Tab PO 2,000 units DAILY ZORAIAD Administration Fluoxetine HCl 40 mg 07/22/20 09:00 07/22/20 09:13 Fluoxetine Hcl 10 Mg Cap PO 40 mg DAILY ZORAIDA Administration Guaifenesin 1,200 mg 07/21/20 21:00 07/22/20 09:12 Guaifenesin Er 600 Mg Tab PO 1,200 mg Q12HR ZORAIDA Administration Hydroxyzine HCl 25 mg 07/21/20 21:00 07/21/20 20:42 Hydroxyzine 25 Mg Tab PO 25 mg HS ZORAIDA Administration Levofloxacin 750 mg/ Device 150 mls @ 100 mls/hr 07/22/20 12:00 07/22/20 11:36 IVPB 150 mls 1200 ZORAIDA Administration Lisinopril 20 mg 07/21/20 14:00 07/21/20 15:43 Lisinopril 20 Mg Tab PO Not Given Q24HR [facility] Methylprednisolone Sodium Succinate 60 mg 07/21/20 18:00 07/22/20 11:46 Methylprednisolone Sod Succ 40 Mg Vial IVP 60 mg Q6HR ZORAIDA Administration Mirabegron 25 mg 07/22/20 09:00 07/22/20 09:13 Mirabegron Er 25 Mg Tab PO 25 mg DAILY ZORAIDA Administration Mometasone Furoate/Formoterol Fumar 2 puff 07/21/20 19:00 07/22/20 09:34 Mometasone/Formoterol 200/5 60 Puff INH 2 puff BID-RT ZORAIDA Administration Montelukast Sodium 10 mg 07/21/20 21:00 07/21/20 20:43 Montelukast Sodium 10 Mg Tablet PO 10 mg HS ZORAIDA Administration Multivitamins/Minerals 1 tab 07/22/20 09:00 07/22/20 09:13 Vit A,C & E/Lutein/Minerals Tablet PO 1 tab DAILY ZORAIDA Administration Nicotine 14 mg 07/21/20 14:00 07/21/20 15:45 Nicotine 14 Mg Patch TD 14 mg Q24HR ZORAIDA Administration Pantoprazole Sodium 40 mg 07/22/20 09:00 07/22/20 09:14 Pantoprazole 40 Mg Tab PO 40 mg DAILY ZORAIDA Administration Propranolol HCl 20 mg 07/21/20 13:38 07/22/20 05:45 Propranolol Hcl 20 Mg Tab PO 20 mg BIDPRN PRN Administration Anxiety Tamsulosin HCl 0.4 mg 07/22/20 09:00 07/22/20 09:14 Tamsulosin Hcl 0.4 Mg Cap PO 0.4 mg DAILY ZORAIDA Administration - Exam General Appearance: NAD (tripoding during neb treatment), awake alert Eye: PERRL, anicteric sclera ENT: normocephalic atraumatic, moist mucosa Neck: supple, symmetric, no JVD, no thyromegaly, no lymphadenopathy Heart: RRR, no murmur, no gallops, no rubs Respiratory: no rales, no ronchi, wheezes (bibasilar expiratory) Gastrointestinal: soft, non-tender, non-distended, normal bowel sounds Extremities: no cyanosis, no clubbing, no edema Skin: normal turgor Neurological: cranial nerve grossly intact, no focal deficits Musculoskeletal: normal tone Psychiatric: normal affect, A&O x 3 Hospitalist Results - Labs Result Diagrams: 07/22/20 04:20 07/22/20 04:20 Lab results: WBC 10.1 thou/uL (4.8-10.8) 07/22/20 04:20 Hgb 14.7 g/dL (12.0-16.0) 07/22/20 04:20 Hct 45.0 % (36.0-47.0) 07/22/20 04:20 MCV 97.5 fL (78.0-98.0) 07/22/20 04:20 Plt Count 293 thou/uL (130-400) 07/22/20 04:20 Neutrophils % 88.7 % (42.0-75.0) H 07/22/20 04:20 Sodium 136 mmol/L (136-145) 07/22/20 04:20 Potassium 4.4 mmol/L (3.5-5.1) 07/22/20 04:20 Chloride 100 mmol/L (98-107) 07/22/20 04:20 Carbon Dioxide 24 mmol/L (23-31) 07/22/20 04:20 BUN 22 mg/dL (9.8-20.1) H 07/22/20 04:20 Creatinine 0.74 mg/dL (0.6-1.1) 07/22/20 04:20 Glucose 165 mg/dL (83-110) H 07/22/20 04:20 Calcium 9.4 mg/dL (7.8-10.44) 07/22/20 04:20 - Radiology Interpretation Chest x-ray Status: image reviewed by me (negative for acute infiltrates; hyperexpansion) Hospitalist H&P A/P - Problem (1) Acute respiratory failure with hypoxia Code(s): J96.01 - ACUTE RESPIRATORY FAILURE WITH HYPOXIA Status: Acute (2) COPD exacerbation Code(s): J44.1 - CHRONIC OBSTRUCTIVE PULMONARY DISEASE W (ACUTE) EXACERBATION Status: Acute (3) Bipolar disorder Code(s): F31.9 - BIPOLAR DISORDER, UNSPECIFIED Status: Chronic Qualifiers: Active/Remission status: in full remission (4) Head ache Code(s): R51 - HEADACHE * DO NOT USE * Status: Chronic Qualifiers: Headache type: tension-type Headache chronicity pattern: episodic headache Intractability: not intractable Qualified Code(s): G44.219 - Episodic tension-type headache, not intractable (5) Hyperlipidemia Code(s): E78.5 - HYPERLIPIDEMIA, UNSPECIFIED Status: Chronic Qualifiers: Hyperlipidemia type: unspecified (6) Hypertension Code(s): I10 - ESSENTIAL (PRIMARY) HYPERTENSION Status: Chronic Qualifiers: Hypertension type: essential hypertension (7) Mood disorder Status: Chronic - Plan Plan: Continue supportive O2, nebs, IV steroids and antibiotics. F/u radiology read of CXR today. F/u sputum and blood cultures pending. Prophylaxis with PPI and SCDs. Pt. may ambulate as tolerated.
[2020-07-22] MEDS: Lisinopril 20 MG TAB PO SCH (14:38)
[2020-07-22] MEDS: Nicotine 14 MG PATCH TD SCH (14:39)
--- NOTE | 2020-07-22 15:04 | RAD ---
CHEST TWO VIEWS: 07/22/20 Comparison is made with the 07/19 study. Again noted are findings of COPD. No focal infiltrate, effusion, or other acute change was found. The re has been no adverse change in the interval. The heart is normal in size. There is no vascular sara estion. IMPRESSION: COPD with little change since the last study. POS: HOME
[2020-07-22] MEDS: Atorvastatin Calcium 10 MG TAB PO SCH (20:25)
[2020-07-22] MEDS: Montelukast Sodium 10 mg Tablet PO SCH (20:26)
[2020-07-22] MEDS: hydrOXYzine 25 MG TAB PO SCH (20:26)
[2020-07-23] MEDS ORDERED: hydrALAZINE 20 MG/ML VIAL ONE (00:05)
[2020-07-23] MEDS: hydrALAZINE 20 MG/ML VIAL SLOW IVP PRN (00:08)
[2020-07-23] MEDS: Benzonatate 100 MG CAP PO PRN (00:09)
[2020-07-23] MEDS: methylPREDNISolone Sod Succ 40 MG VIAL IVP SCH ×5 (00:51→23:49)
[2020-07-23] MEDS: Mometasone/Formoterol 200/5 60 PUFF INH SCH ×2 (06:41→18:10)
[2020-07-23] MEDS: Propranolol HCl 20 MG TAB PO PRN (06:42)
[2020-07-23] MEDS: Acetaminophen 325 MG TAB PO PRN (06:42)
[2020-07-23] MEDS: Tamsulosin HCl 0.4 MG CAP PO SCH (09:03)
[2020-07-23] MEDS: Cholecalciferol 1,000 UNITS (25 MCG) TAB PO SCH (09:03)
[2020-07-23] MEDS: FLUoxetine HCl 10 MG CAP PO SCH (09:03)
[2020-07-23] MEDS: Vit A,C & E/Lutein/Minerals Tablet PO SCH (09:03)
[2020-07-23] MEDS: Benztropine 1 MG TAB PO SCH ×2 (09:03→20:56)
[2020-07-23] MEDS: guaiFENesin ER 600 MG TAB PO SCH (09:03)
[2020-07-23] MEDS: HYDROcodone/Acetaminophen 10/325 mg Tablet PO PRN ×2 (09:11→21:00)
[2020-07-23] MEDS ORDERED: Amlodipine 5 MG TAB PO SCH (11:30)
[2020-07-23] MEDS: Nicotine 14 MG PATCH TD SCH (14:14)
[2020-07-23] MEDS: Lisinopril 20 MG TAB PO SCH (14:17)
[2020-07-23] MEDS: hydrOXYzine 25 MG TAB PO SCH (20:56)
[2020-07-23] MEDS: Montelukast Sodium 10 mg Tablet PO SCH (20:56)
[2020-07-23] MEDS: Atorvastatin Calcium 10 MG TAB PO SCH (20:56)
[2020-07-24] MEDS: HYDROcodone/Acetaminophen 10/325 mg Tablet PO PRN ×3 (02:19→18:15)
[2020-07-24] MEDS ORDERED: hydrALAZINE 20 MG/ML VIAL ONE (04:52)
[2020-07-24] MEDS: hydrALAZINE 20 MG/ML VIAL SLOW IVP PRN (04:56)
[2020-07-24] MEDS: methylPREDNISolone Sod Succ 40 MG VIAL IVP SCH ×4 (05:01→23:25)
[2020-07-24] MEDS: Mometasone/Formoterol 200/5 60 PUFF INH SCH ×2 (06:06→18:30)
[2020-07-24] MEDS: Cholecalciferol 1,000 UNITS (25 MCG) TAB PO SCH (08:18)
[2020-07-24] MEDS: FLUoxetine HCl 10 MG CAP PO SCH (08:19)
[2020-07-24] MEDS: Tamsulosin HCl 0.4 MG CAP PO SCH (08:21)
[2020-07-24] MEDS: Benztropine 1 MG TAB PO SCH ×2 (08:21→20:41)
[2020-07-24] MEDS: Vit A,C & E/Lutein/Minerals Tablet PO SCH (08:22)
[2020-07-24] MEDS: Benzonatate 100 MG CAP PO PRN ×2 (08:26→23:25)
[2020-07-24] MEDS ORDERED: Amlodipine 5 MG TAB PO SCH (09:00)
[2020-07-24] MEDS: Lisinopril 20 MG TAB PO SCH (14:36)
[2020-07-24] MEDS: Nicotine 14 MG PATCH TD SCH (14:37)
[2020-07-24] MEDS: Montelukast Sodium 10 mg Tablet PO SCH (20:41)
[2020-07-24] MEDS: Atorvastatin Calcium 10 MG TAB PO SCH (20:41)
[2020-07-24] MEDS: hydrOXYzine 25 MG TAB PO SCH (20:44)
[2020-07-25 02:44] VITALS: BMI 16.6
[2020-07-25] MEDS: methylPREDNISolone Sod Succ 40 MG VIAL IVP SCH ×2 (05:58→13:09)
[2020-07-25] MEDS: Mometasone/Formoterol 200/5 60 PUFF INH SCH ×2 (06:03→18:12)
[2020-07-25] MEDS: Amlodipine 5 MG TAB PO SCH (08:11)
[2020-07-25] MEDS: Vit A,C & E/Lutein/Minerals Tablet PO SCH (08:11)
[2020-07-25] MEDS: Tamsulosin HCl 0.4 MG CAP PO SCH (08:12)
[2020-07-25] MEDS: HYDROcodone/Acetaminophen 5/325 mg Tablet PO PRN ×3 (08:12→18:37)
[2020-07-25] MEDS: Cholecalciferol 1,000 UNITS (25 MCG) TAB PO SCH (08:13)
[2020-07-25] MEDS: FLUoxetine HCl 10 MG CAP PO SCH (08:13)
[2020-07-25] MEDS: Benztropine 1 MG TAB PO SCH ×2 (08:14→21:05)
--- NOTE | 2020-07-25 14:42 | PDOC.BPN ---
- Brief Progress Note Encounter Date: 07/25/20 Encounter Time: 14:39 Ms. Dowd reports feeling better today. She has less cough. Same amount of scant sputum, but it is more white in color. She has been working with PT, but reports that she really doesn't feel like she needs this outside of the hospitalization. She desires to be able to go home once COPD has improved. The nicotine transdermal is controlling her cravings. She feels that she is more motivated to quit smoking this time when she discharges. She has also been talking with her son, who is an RN, about advanced directives and would like more information. She states regarding outpatient pulmonary rehab, she doesn't have a vehicle for transport to and from appointments. Her children all work. Regarding her blood pressure, the patient's BP was taken this morning after she had copious amount of coffee per staff and prior to a neb treatment. It subsequently improved. Selected Entries 07/25/20 07/25/20 07/25/20 04:48 06:03 06:08 Pulse Rhythm Respiratory Effort Temperature Oral Source Temperature 98.8 F Pulse Rate Blood Pressure Respiratory 20 20 Rate O2 Sat by Pulse Oximetry Oxygen Flow Rate Oxygen Delivery Method 07/25/20 07/25/20 07/25/20 08:00 08:11 12:55 Pulse Rhythm Regular Respiratory Short of Breath Effort Slightly Labored Temperature Source Temperature Pulse Rate 96 Blood Pressure 183/81 H Respiratory Rate O2 Sat by Pulse 94 L Oximetry Oxygen Flow 2 Rate Oxygen Delivery Nasal Cannula Method Repeat BP at 1400 was 138/64. Hospitalist History - Past Medical History Psych: reports: Anxiety, Bipolar - Past Surgical History Past Surgical History: reports: Hysterectomy, Tonsillectomy - Social History Smoking Status: Smokes 11 or more cig/day Tobacco Type: cigarettes Alcohol: reports: None Drugs: reports: none, marijuana Living Situation: Alone Domestic Violence: Negative Activity level: independent ambulation Hospitalist ROS - Review of Systems Constitutional: denies: fever, chills, sweats, weakness ENT: denies: nose congestion, throat pain Respiratory: reports: cough, dry, SOB with excertion. denies: shortness of breath Cardiovascular: denies: chest pain, palpitations, edema Gastrointestinal: denies: nausea, vomiting, abdominal pain, diarrhea, constipation Skin: denies: rash - Medication Medications: Active Medications Generic Name Dose Route Start Last Admin Trade Name Freq PRN Reason Stop Dose Admin Acetaminophen 650 mg 07/21/20 13:32 07/23/20 06:42 Acetaminophen 325 Mg Tab PO 650 mg Q4H PRN Administration Headache/Fever/Mild Pain (1-3) Hydrocodone Bitart/Acetaminophen 1 tab 07/21/20 13:32 07/25/20 14:07 Hydrocodone/Acetaminophen 5/325 Mg Tablet PO 1 tab Q4H PRN Administration Moderate Pain (4-6) Hydrocodone Bitart/Acetaminophen 1 tab 07/21/20 13:32 07/24/20 18:15 Hydrocodone/Acetaminophen 10/325 Mg Tablet PO 1 tab Q4H PRN Administration Severe Pain (7-10) Albuterol Sulfate 2.5 mg 07/21/20 13:32 07/21/20 14:16 Albuterol Sulfate 2.5 Mg/3 Ml Neb NEB 2.5 mg Q2H PRN Administration SOB &/or Wheezing Albuterol/Ipratropium 3 ml 07/21/20 19:00 07/25/20 13:11 Ipratropium/Albuterol Sulfate 3 Ml Neb NEB 3 ml [id number] ZORAIDA Administration Amlodipine Besylate 5 mg 07/25/20 09:00 07/25/20 08:11 Amlodipine 5 Mg Tab PO 5 mg DAILY ZORAIDA Administration Atorvastatin Calcium 20 mg 07/21/20 21:00 07/24/20 20:41 Atorvastatin Calcium 10 Mg Tab PO 20 mg HS ZORAIDA Administration Benzonatate 100 mg 07/21/20 13:32 07/24/20 23:25 Benzonatate 100 Mg Cap PO 100 mg Q6H PRN Administration Cough Benztropine Mesylate 0.5 mg 07/21/20 21:00 07/25/20 08:14 Benztropine 1 Mg Tab PO 0.5 mg BID ZORAIDA Administration Cholecalciferol 2,000 units 07/22/20 09:00 07/25/20 08:13 Cholecalciferol 1,000 Units (25 Mcg) Tab PO 2,000 units DAILY ZORAIDA Administration Fluoxetine HCl 40 mg 07/22/20 09:00 07/25/20 08:13 Fluoxetine Hcl 10 Mg Cap PO 40 mg DAILY ZORAIDA Administration Hydralazine HCl 10 mg 07/21/20 13:32 07/24/20 04:56 Hydralazine 20 Mg/Ml Vial SLOW IVP 10 mg Q4H PRN Administration SBP > 180 and HR < 70 Hydroxyzine HCl 25 mg 07/21/20 21:00 07/24/20 20:44 Hydroxyzine 25 Mg Tab PO 25 mg HS ZORAIDA Administration Levofloxacin 750 mg/ Device 150 mls @ 100 mls/hr 07/22/20 12:00 07/25/20 13:11 IVPB 150 mls 1200 ZORAIDA Administration Lisinopril 20 mg 07/21/20 14:00 07/24/20 14:36 Lisinopril 20 Mg Tab PO 20 mg Q24HR ZORAIDA Administration Methylprednisolone Sodium Succinate 60 mg 07/21/20 18:00 07/25/20 13:09 Methylprednisolone Sod Succ 40 Mg Vial IVP 60 mg Q6HR ZORAIDA Administration Mirabegron 25 mg 07/22/20 09:00 07/25/20 08:11 Mirabegron Er 25 Mg Tab PO 25 mg DAILY ZORAIDA Administration Mometasone Furoate/Formoterol Fumar 2 puff 07/21/20 19:00 07/25/20 06:03 Mometasone/Formoterol 200/5 60 Puff INH 2 puff BID-RT ZORAIDA Administration Montelukast Sodium 10 mg 07/21/20 21:00 07/24/20 20:41 Montelukast Sodium 10 Mg Tablet PO 10 mg HS ZORAIDA Administration Multivitamins/Minerals 1 tab 07/22/20 09:00 07/25/20 08:11 Vit A,C & E/Lutein/Minerals Tablet PO 1 tab DAILY ZORAIDA Administration Nicotine 14 mg 07/21/20 14:00 07/24/20 14:37 Nicotine 14 Mg Patch TD 14 mg Q24HR ZORAIDA Administration Pantoprazole Sodium 40 mg 07/22/20 09:00 07/25/20 08:13 Pantoprazole 40 Mg Tab PO 40 mg DAILY ZORAIDA Administration Propranolol HCl 20 mg 07/21/20 13:38 07/23/20 06:42 Propranolol Hcl 20 Mg Tab PO 20 mg BIDPRN PRN Administration Anxiety Sodium Chloride 10 ml 07/22/20 21:00 07/25/20 08:13 Flush - Normal Saline 10 Ml Syringe IVF 10 ml Q12HR ZORAIDA Administration Sodium Chloride 10 ml 07/22/20 18:15 07/24/20 23:29 Flush - Normal Saline 10 Ml Syringe IVF 10 ml PRN PRN Administration Saline Flush Tamsulosin HCl 0.4 mg 07/22/20 09:00 07/25/20 08:12 Tamsulosin Hcl 0.4 Mg Cap PO 0.4 mg DAILY ZORAIDA Administration - Exam General Appearance: NAD, awake alert Eye: PERRL, anicteric sclera ENT: normocephalic atraumatic, moist mucosa Neck: supple, no JVD Heart: RRR, no murmur, no gallops, no rubs Respiratory: CTAB, no wheezes, no rales, no ronchi, normal chest expansion Respiratory - other findings: diminished air entry throughout Gastrointestinal: soft, non-tender, non-distended, normal bowel sounds Extremities: no cyanosis, no clubbing, no edema Skin: normal turgor, no rashes Neurological: cranial nerve grossly intact, no focal deficits Psychiatric: normal affect, A&O x 3 Hospitalist H&P A/P - Problem (1) Acute respiratory failure with hypoxia Code(s): J96.01 - ACUTE RESPIRATORY FAILURE WITH HYPOXIA Status: Resolved Assessment and Plan: The patient has chronic respiratory failure, and is now on her baseline O2 requirement at 2LPM. (2) COPD exacerbation Code(s): J44.1 - CHRONIC OBSTRUCTIVE PULMONARY DISEASE W (ACUTE) EXACERBATION Status: Acute Assessment and Plan: Improving. Transition from IV steroids to oral. Continue IV antibiotics. Continue ICS. Discussed outpatient pulmonary rehab as a possibility if she is interested. Her PCP could arrange transportation through the [facility]. Continue PT while she is here. Will discuss again at discharge. (3) Bipolar disorder Code(s): F31.9 - BIPOLAR DISORDER, UNSPECIFIED Status: Chronic Qualifiers: Active/Remission status: in full remission (4) Head ache Code(s): R51 - HEADACHE * DO NOT USE * Status: Chronic Qualifiers: Headache type: tension-type Headache chronicity pattern: episodic headache Intractability: not intractable Qualified Code(s): G44.219 - Episodic tension-type headache, not intractable (5) Hyperlipidemia Code(s): E78.5 - HYPERLIPIDEMIA, UNSPECIFIED Status: Chronic Qualifiers: Hyperlipidemia type: unspecified (6) Hypertension Code(s): I10 - ESSENTIAL (PRIMARY) HYPERTENSION Status: Chronic Qualifiers: Hypertension type: essential hypertension Assessment and Plan: Amlodipine was just added and increased in the last 48 hours. Discussed with nursing that she has a PRN hydralazine order if needed. Better control this afternoon and will take a couple of days to see full effects. (7) Mood disorder Status: Chronic - Plan Plan: Continue present PRN meds. Ambulating and has SCDs and PPI for prophylaxis. She has been given an advanced directives packet as requested. If does well with oral steroid transition, she could go home tomorrow afternoon or the following morning, barring any new issues.
[2020-07-25] MEDS: Lisinopril 20 MG TAB PO SCH (15:11)
[2020-07-25] MEDS: Nicotine 14 MG PATCH TD SCH (15:11)
[2020-07-25 18:49] VITALS: TEMP 98.2
[2020-07-25] MEDS: Benzonatate 100 MG CAP PO PRN (21:05)
[2020-07-25] MEDS: Atorvastatin Calcium 10 MG TAB PO SCH (21:05)
[2020-07-25] MEDS: Acetaminophen 325 MG TAB PO PRN (21:06)
[2020-07-25] MEDS: Montelukast Sodium 10 mg Tablet PO SCH (21:06)
[2020-07-25] MEDS: hydrOXYzine 25 MG TAB PO SCH (21:06)
[2020-07-25] MEDS: predniSONE 20 MG TAB PO SCH (21:07)
[2020-07-26] MEDS: Propranolol HCl 20 MG TAB PO PRN (05:48)
[2020-07-26] MEDS: Acetaminophen 325 MG TAB PO PRN ×2 (05:48→13:51)
[2020-07-26] MEDS: Mometasone/Formoterol 200/5 60 PUFF INH SCH (07:01)
[2020-07-26] MEDS: FLUoxetine HCl 10 MG CAP PO SCH (08:32)
[2020-07-26] MEDS: predniSONE 20 MG TAB PO SCH (08:33)
[2020-07-26] MEDS: Vit A,C & E/Lutein/Minerals Tablet PO SCH (08:33)
[2020-07-26] MEDS: Tamsulosin HCl 0.4 MG CAP PO SCH (08:34)
[2020-07-26] MEDS: Benztropine 1 MG TAB PO SCH ×2 (08:34→08:35)
[2020-07-26] MEDS: Cholecalciferol 1,000 UNITS (25 MCG) TAB PO SCH (08:34)
[2020-07-26] MEDS: Amlodipine 5 MG TAB PO SCH (08:36)
[2020-07-26 08:37] VITALS: BP 173/77
[2020-07-26] MEDS: HYDROcodone/Acetaminophen 5/325 mg Tablet PO PRN (10:03)
[2020-07-26] MEDS ORDERED: Amlodipine 5 MG TAB PO SCH (13:15)
--- NOTE | 2020-07-26 13:15 | PDOC.DS.DS ---
Provider Date of Admission: 07/21/20 12:22 Date of Discharge: 07/26/20 Admitting Provider: Asya Simon DO Primary Care Physician: Shan Murillo D.O. Course Hospital Course: Ms. Dowd is a 70 y/o female who re-presented for COPD exacerbation due to relapse of tobacco abuse following a recent observation for exacerbation. Upon presentation, she was tachypneic, using accessory muscles, and required 4 liters. With serial neb treatments, solumedrol, mag sulfate and antibiotics, she was able to wean back to her home O2 requirement of 2LPM. Covid screen was negative. CXR showed COPD without acute findings. She was admitted and given Levaquin and Solumedrol IV, neb treatments and pulmonary toillette with ICS. PT evaluated the patient, but the patient felt that she doesn't have any desire to have PT after discharge. Her solumedrol was weaned to oral prednisone on the date prior to discharge. She is coughing much less, her sputum has turned opaque in color, and her dyspnea is much better. She has been advised smoking cessation, and she has already asked family members to remove smoking paraphenalia from her home and set up partners for accountability. We also discussed the possibility of pulmonary rehab, but she doesn't drive and would need arrangements made through the [facility]. She will discuss this further with her PCP at follow up. She will be discharged with a 14 day prednisone taper and tessalon perles. She has completed a full 7 day course of Levaquin. In addition to her COPD, we treated her blood pressure throughout her stay, trying to achieve better control. Her lisinopril had been increased to 20 mg during her obs stay, and this visit, we titrated up amlodipine. This will need to be rechecked at her f/u visit, as well. She has been advised to check her blood pressure twice daily and record it. She is to try to limit her caffeine intake as this was significant in amount while she was here. Pertinent Studies: CXR date of admission showed COPD but no acute findings. Blood culture x 2 negative at 48 hours. Respiratory culture shows normal respiratory priscila. Resuscitation Status: 07/21/20 13:32 Resuscitation Status Routine Resuscitation Status: FULL: Full Resuscitation Lab Results: 07/22/20 04:20 07/22/20 04:20 Microbiology - Entire Visit 07/21/20 18:45 Sputum Respiratory Culture - Final 07/21/20 14:40 Venous blood - Left Arm Blood Culture - Preliminary NO GROWTH AT 48 HOURS 07/21/20 13:50 Venous blood - Right Arm Blood Culture - Preliminary NO GROWTH AT 48 HOURS Vitals: Vital Signs (12 hours) Temp Pulse Resp BP BP Pulse Ox 07/26/20 08:36 69 173/77 H 07/26/20 07:35 96 07/26/20 06:46 98 07/26/20 06:31 178/86 H 07/26/20 06:17 98.2 F 84 20 212/97 H 92 L Weight Admit Weight 108 lb 0.424 oz Weight 97 lb 0.8 oz Physical Exam: The patient was seen and examined on the day of discharge. General Appearance: NAD, awake alert General - other findings: thin female Eye: PERRL, anicteric sclera ENT: normocephalic atraumatic, no oropharyngeal lesions, moist mucosa Neck: supple, no JVD, no thyromegaly, no lymphadenopathy Respiratory: CTAB Respiratory - other findings: diminished air entry throughout Cardiovascular: RRR, no murmur, no gallops, no rubs Cardiovascular - other findings: distant heart sounds Gastrointestinal: soft, non-tender, non-distended, normal bowel sounds Extremities: no cyanosis, no clubbing, no edema Skin: normal turgor, no rashes Neurological: cranial nerve grossly intact, no focal deficits PSYCH: normal behavior, A&O x 3 Problem (1) Acute respiratory failure with hypoxia Code(s): J96.01 - ACUTE RESPIRATORY FAILURE WITH HYPOXIA Status: Resolved Plan: Contine O2 at 2LPM at home. Avoid smoking. Consider pulmonary rehab. (2) COPD exacerbation Code(s): J44.1 - CHRONIC OBSTRUCTIVE PULMONARY DISEASE W (ACUTE) EXACERBATION Status: Acute Plan: Finished 7 day course of Levaquin and will take a 14 day prednisone taper. (3) Bipolar disorder Code(s): F31.9 - BIPOLAR DISORDER, UNSPECIFIED Status: Chronic Qualifiers: Active/Remission status: in full remission (4) Head ache Code(s): R51 - HEADACHE * DO NOT USE * Status: Chronic Qualifiers: Headache type: tension-type Headache chronicity pattern: episodic headache Intractability: not intractable Qualified Code(s): G44.219 - Episodic tension-type headache, not intractable (5) Hyperlipidemia Code(s): E78.5 - HYPERLIPIDEMIA, UNSPECIFIED Status: Chronic Qualifiers: Hyperlipidemia type: unspecified Qualified Code(s): E78.5 - Hyperlipidemia, unspecified (6) Hypertension Code(s): I10 - ESSENTIAL (PRIMARY) HYPERTENSION Status: Chronic Qualifiers: Hypertension type: essential hypertension Qualified Code(s): I10 - Essential (primary) hypertension Plan: Check BP twice daily and record in a log and bring to f/u visit with PCP. Continue to titrate BP medication as an outpatient. (7) Mood disorder Status: Chronic Plan Prescriptions: Amlodipine [Norvasc] 10 mg PO DAILY #30 tab Benzonatate [Tessalon] 100 mg PO Q6H PRN #60 cap PRN Reason: Home Medications: Medication Instructions Recorded Confirmed Type Montelukast Sodium [Singulair] 10 mg PO HS 12/08/16 07/21/20 History Albuterol Sulfate [Proair HFA] 2 puff INH QID PRN 02/13/18 07/21/20 History Ipratropium/Albuterol Sulfate 3 ml NEB Q6HR 02/13/18 07/21/20 History [DuoNeb] Atorvastatin Calcium 20 mg PO DAILY 08/14/19 07/21/20 History Benztropine Mesylate 0.5 mg PO BID 08/14/19 07/21/20 History FLUoxetine HCl [Fluoxetine HCl] 40 mg PO DAILY 08/14/19 07/21/20 History Mirabegron [Myrbetriq] 25 mg PO DAILY 08/14/19 07/21/20 History OLANZapine [ZyPREXA] 7.5 mg PO HS 08/14/19 07/21/20 History Pantoprazole Sodium 1 tab PO DAILY 08/14/19 07/21/20 History Propranolol HCl 20 mg PO BID PRN 08/14/19 07/21/20 History Tamsulosin HCl [Flomax] 0.4 mg PO DAILY 08/14/19 07/21/20 History Cholecalciferol (Vitamin D3) 2,000 unit PO DAILY 02/14/20 07/21/20 History [Vitamin D3] Fluticasone/Vilanterol [Breo 1 puff INH DAILY 02/14/20 07/21/20 History Ellipta 200-25 Mcg INH] Multivit-Min/FA/Lycopen/Lutein 1 tab PO DAILY 02/14/20 07/21/20 History [Emmary Senior] Acetaminophen [Tylenol Regular 650 mg PO Q4H PRN tab 07/20/20 07/21/20 Rx Strength] Lisinopril 20 mg PO Q24HR #30 tablet 07/20/20 07/21/20 Rx Promethazine [Phenergan] 25 mg PO Q6HR PRN 07/21/20 07/21/20 History Amlodipine [Norvasc] 10 mg PO DAILY #30 tab 07/26/20 Rx Benzonatate [Tessalon] 100 mg PO Q6H PRN #60 cap 07/26/20 Rx predniSONE 20 mg PO ASDIR #25 tab 07/26/20 07/21/20 Rx Allergies: Penicillins Allergy (Unknown, Verified 07/19/20 15:28) Hives sumatriptan [From Imitrex] Allergy (Unknown, Verified 07/19/20 15:28) Short of Breath MADE PAIN WORSE sumatriptan succinate [From Imitrex] Allergy (Unknown, Verified 07/19/20 15:28) Short of Breath MADE PAIN WORSE naproxen Allergy (Verified 07/19/20 15:28) meperidine HCl [From Demerol] Adverse Reaction (Intermediate, Verified 07/19/20 15:28) hallucinations Activity:: Activity as Tolerated Nourishment:: Heart Healthy Diet Equipment/Supplies:: Oxygen (has at home) IV Therapy:: Not Applicable Referrals: Shan Murillo MD [Lab Providers] - 10 Days Disposition: HOME Quality CORE MEASURES:: N/A
[2020-07-26] MEDS: Lisinopril 20 MG TAB PO SCH (13:50)
[2020-07-26] MEDS ORDERED: HYDROcodone/Acetaminophen 10/325 mg Tablet PO PRN (14:57)
[2020-07-26] MEDS ORDERED: HYDROcodone/Acetaminophen 5/325 mg Tablet PO PRN (14:57)
[2020-07-26] MEDS ORDERED: Senokot S 8.6-50 MG TAB PO PRN (14:57)
[2020-07-26] MEDS ORDERED: Acetaminophen 325 MG TAB PO PRN (14:57)
[2020-07-26] MEDS ORDERED: Benzonatate 100 MG CAP PO PRN (14:58)
[2020-07-26] MEDS ORDERED: hydrALAZINE 20 MG/ML VIAL SLOW IVP PRN (14:58)
[2020-07-26] MEDS ORDERED: Bisacodyl 5 MG TAB PO PRN (14:58)
[2020-07-26] MEDS ORDERED: Albuterol Sulfate 2.5 mg/3 ml Neb NEB PRN (14:59)
[2020-07-26] MEDS ORDERED: Nicotine 14 MG PATCH TD SCH (15:00)
[2020-07-26] MEDS ORDERED: Propranolol HCl 20 MG TAB PO PRN (15:01)
[2020-07-26] MEDS ORDERED: Promethazine 25 MG TAB PO PRN (15:02)
[2020-07-26] MEDS ORDERED: predniSONE 20 MG TAB PO SCH (17:00)
[2020-07-26] MEDS ORDERED: Benztropine 1 MG TAB PO SCH (21:00)
[2020-07-26] MEDS ORDERED: Atorvastatin Calcium 10 MG TAB PO SCH (21:00)
[2020-07-26] MEDS ORDERED: Montelukast Sodium 10 mg Tablet PO SCH (21:00)
[2020-07-26] MEDS ORDERED: Mometasone/Formoterol 200/5 60 PUFF INH SCH ×2 (21:00)
[2020-07-26] MEDS ORDERED: hydrOXYzine 25 MG TAB PO SCH (21:00)
[2020-07-27] MEDS ORDERED: Tamsulosin HCl 0.4 MG CAP PO SCH (09:00)
[2020-07-27] MEDS ORDERED: FLUoxetine HCl 10 MG CAP PO SCH (09:00)
[2020-07-27] MEDS ORDERED: Cholecalciferol 1,000 UNITS (25 MCG) TAB PO SCH (09:00)
[2020-07-27] MEDS ORDERED: Lisinopril 20 MG TAB PO SCH (09:00)
[2020-07-27] MEDS ORDERED: Amlodipine 10 MG TAB PO SCH ×2 (09:00)
[2020-07-27] MEDS ORDERED: Vit A,C & E/Lutein/Minerals Tablet PO SCH (09:00)
== END 2020-07-26 16:34 | disposition home or self-care (01) | DRG 189 ==
LOC: BURERS 10:26 → BURMED 12:22 → UNDODISIN 07-26 13:10
PROVIDERS: ADMIT Family Medicine; ATTEND Family Medicine
DX: J96.21 Acute and chronic respiratory failure with hypoxia (principal); J44.1 Chronic obstructive pulmonary disease with (acute) exacerbation; J96.22 Acute and chronic respiratory failure with hypercapnia; I10 Essential (primary) hypertension; E78.5 Hyperlipidemia, unspecified; F41.9 Anxiety disorder, unspecified; F31.9 Bipolar disorder, unspecified; F17.210 Nicotine dependence, cigarettes, uncomplicated; G44.219 Episodic tension-type headache, not intractable; F39 Unspecified mood [affective] disorder; Z20.822 Contact with and (suspected) exposure to COVID-19; Z90.721 Acquired absence of ovaries, unilateral; Z90.49 Acquired absence of other specified parts of digestive tract; Z90.710 Acquired absence of both cervix and uterus; Z98.890 Other specified postprocedural states; Z88.0 Allergy status to penicillin; Z88.8 Allergy status to other drugs, medicaments and biological substances; Z79.899 Other long term (current) drug therapy; Z90.79 Acquired absence of other genital organ(s); Z79.51 Long term (current) use of inhaled steroids
CPT/HCPCS: 0240U; 36415; 71046; 80048; 85025; 87040; 87070; 87205; 94640; 94664; 94760; 96365; 96367; J0360; J1956; J2920; J3475; J7512; J7611; J7620

== ENCOUNTER 2020-10-08 21:18 | Emergency (ER) | payer MEDICARE, OTHER ==
[2020-10-08] MEDS ORDERED: Dexamethasone 10 MG/ML VIAL ONE (22:01)
== END 2020-10-08 23:50 | disposition home or self-care (01) ==
LOC: BURERS 21:18
DX: J44.1 Chronic obstructive pulmonary disease with (acute) exacerbation (principal); I10 Essential (primary) hypertension; E78.5 Hyperlipidemia, unspecified; F17.210 Nicotine dependence, cigarettes, uncomplicated; Z79.899 Other long term (current) drug therapy; Z71.6 Tobacco abuse counseling
CPT/HCPCS: 71045; 96374; J1100

== ENCOUNTER 2020-11-11 18:54 | Emergency (ER) | payer MEDICARE, OTHER ==
[2020-11-11] MEDS ORDERED: methylPREDNISolone Sod Succ/PF 125 MG/2 ML VIAL ONE (19:22)
[2020-11-11] MEDS ORDERED: Albuterol Sulfate 1.25 MG/3 ML NEB ONE (19:22)
[2020-11-11] MEDS ORDERED: Azithromycin 500 MG VIAL ONE (19:24)
[2020-11-11 19:35] LABS: Bilirubin Negative (Negative); Blood, Urine Trace (Negative); Clarity Clear (Clear); Glucose, Urine (Dipstick) Negative (Negative); Ketone, Urine Negative (Negative); Leukocyte Negative (Negative); Nitrite Negative (Negative); Protein, Urine (Dipstick) Negative (Neg-Trace); Urobilinogen 0.2 mg/dL (Less than 2)
[2020-11-11 19:35] LABS: #Basophils 0.1 thou/uL (0.0-0.2); #Eosinphils 0.1 thou/uL (0.0-0.7); #Lymphocytes 2.7 thou/uL (1.20-3.40); #Monocytes 0.5 thou/uL (0.11-0.59); %Basophils 1.6 % (0.0-1.0); %Eosinophils 1.2 % (0.0-10.0); %Lymphocytes 31.6 % (21.0-51.0); %Monocytes 6.3 % (0.0-10.0); %Neutrophils 59.4 % (42.0-75.0); Hemoglobin 14.3 g/dL (12.0-16.0); Mean Corpuscular HGB CONC 32.5 g/dL (32.0-36.0); Mean Corpuscular Hemoglobin 31.4 pg (27.0-31.0); Mean Corpuscular Volume 96.8 fL (78.0-98.0); Mean Platelet Volume 5.9 fL (7.4-10.4); Platelet Count 269 thou/uL (130-400); Red Blood Cell (RBC) Count 4.53 mill/uL (4.20-5.40); White Blood Cell (WBC) Count 8.4 thou/uL (4.8-10.8)
[2020-11-11 19:43] LABS: Bacteria/HPF None Seen HPF (None Seen); RBC/HPF 0-3 HPF (0-3); Squamous Epithelial 0-3 HPF (0-3); WBC/HPF 0-3 HPF (0-3)
[2020-11-11 19:52] LABS: ALT (SGPT) 12 U/L (8-55); AST (SGOT) 12 U/L (5-34); Albumin 4.1 g/dL (3.4-4.8); Alkaline Phosphatase 80 U/L (40-110); Anion Gap 16 mmol/L (10-20); BUN (Urea Nitrogen) 10 mg/dL (9.8-20.1); Bilirubin, Total 0.3 mg/dL (0.2-1.2); Calc. Creatinine Clearance 0 mL/min (70-130); Calcium 9.5 mg/dL (7.8-10.44); Carbon Dioxide 28 mmol/L (23-31); Chloride 104 mmol/L (98-107); Globulin 2.5 g/dL (2.4-3.5); Glucose 78 mg/dL (83-110); Potassium 3.8 mmol/L (3.5-5.1); Protein, Total 6.6 g/dL (5.8-8.1); Sodium 144 mmol/L (136-145)
[2020-11-11 21:09] LABS: Base Excess-Venous 0.9 mmol/L (-2.0 to 3.0); Bicarbonate (HCO3v) 29.7 mmol/L (22.0-28.0); CO2 Tension (PvCO2) 64.4 mmHg (42.0-51.0); Calcium, Ionized 1.16 mmol/L (1.15-1.33); Chloride 104 mmol/L (98-107); Hemoglobin - Calc 15.1 g/dL (12.0-16.0); Potassium 3.6 mmol/L (3.5-5.1); Sodium 142 mmol/L (138-145); T. Carbon Dioxide 31.7 mmol/L (22.0-28.0); vO2 Saturation-calc 60.8 % (60.0-85.0)
[2020-11-11 21:44] LABS: SARS-CoV-2 NAA Rapid Test Not Detected (NotDetected)
== END 2020-11-11 20:57 | disposition short-term general hospital (02) ==
LOC: BURERS 18:54
DX: J44.1 Chronic obstructive pulmonary disease with (acute) exacerbation (principal); I10 Essential (primary) hypertension; F17.210 Nicotine dependence, cigarettes, uncomplicated; E78.5 Hyperlipidemia, unspecified; Z20.822 Contact with and (suspected) exposure to COVID-19; Z79.899 Other long term (current) drug therapy
CPT/HCPCS: 0241U; 36415; 71045; 80053; 81003; 81015; 82330; 82803; 83880; 84484; 85025; 87040; 93005; 96365; 96375; J0456; J2930; J7620

== ENCOUNTER 2020-11-27 14:59 | Observation (INO) | payer MEDICARE, MEDICAID ==
[2020-11-27] MEDS ORDERED: Magnesium 2 GM/50 ML BAG (IN WATER) ONE (15:16)
[2020-11-27] MEDS ORDERED: Albuterol Sulfate 2.5 mg/0.5 ml Neb ONE ×2 (15:16→15:17)
[2020-11-27 15:31] LABS: #Basophils 0.1 thou/uL (0.0-0.2); #Eosinphils 0.1 thou/uL (0.0-0.7); #Lymphocytes 2.3 thou/uL (1.20-3.40); #Monocytes 0.5 thou/uL (0.11-0.59); #Neutrophils 7.2 thou/uL (1.40-6.50); %Basophils 0.8 % (0.0-1.0); %Eosinophils 1.2 % (0.0-10.0); %Lymphocytes 22.6 % (21.0-51.0); %Neutrophils 70.3 % (42.0-75.0); Hemoglobin 13.4 g/dL (12.0-16.0); Mean Corpuscular HGB CONC 32.8 g/dL (32.0-36.0); Mean Corpuscular Hemoglobin 31.4 pg (27.0-31.0); Mean Corpuscular Volume 95.6 fL (78.0-98.0); Mean Platelet Volume 5.6 fL (7.4-10.4); Platelet Count 371 thou/uL (130-400); RBC Distribution Width 12.1 % (11.5-14.5); Red Blood Cell (RBC) Count 4.27 mill/uL (4.20-5.40); White Blood Cell (WBC) Count 10.3 thou/uL (4.8-10.8)
[2020-11-27 15:54] LABS: ALT (SGPT) 14 U/L (8-55); AST (SGOT) 12 U/L (5-34); Albumin 3.4 g/dL (3.4-4.8); Alkaline Phosphatase 60 U/L (40-110); Anion Gap 14 mmol/L (10-20); BUN (Urea Nitrogen) 15 mg/dL (9.8-20.1); Bilirubin, Total 0.2 mg/dL (0.2-1.2); Calc. Creatinine Clearance 0 mL/min (70-130); Calcium 8.5 mg/dL (7.8-10.44); Carbon Dioxide 24 mmol/L (23-31); Chloride 101 mmol/L (98-107); Globulin 2.2 g/dL (2.4-3.5); Glucose 95 mg/dL (83-110); Potassium 4.1 mmol/L (3.5-5.1); Protein, Total 5.6 g/dL (5.8-8.1); Sodium 135 mmol/L (136-145)
[2020-11-27 17:41] VITALS: BMI 17.3
[2020-11-27] MEDS ORDERED: Ondansetron PF 4 MG/2 ML Vial IVP PRN (18:00)
[2020-11-27] MEDS ORDERED: Ondansetron ODT 4 MG TAB SL PRN (18:00)
[2020-11-27] MEDS: Dextrose 5 %-0.45 % NaCl 1,000 ML IV SCH (18:17)
[2020-11-27] MEDS: Acetaminophen 325 MG TAB PO PRN (20:40)
[2020-11-27] MEDS: methylPREDNISolone Sod Succ 40 MG VIAL IVP SCH (20:41)
[2020-11-27] MEDS: Benztropine 1 MG TAB PO SCH (21:24)
[2020-11-28] MEDS: Dextrose 5 %-0.45 % NaCl 1,000 ML IV SCH (01:06)
[2020-11-28] MEDS ORDERED: Mometasone/Formoterol 200/5 60 PUFF INH SCH (07:30)
[2020-11-28] MEDS ORDERED: predniSONE 20 MG TAB PO SCH (09:00)
[2020-11-28] MEDS: methylPREDNISolone Sod Succ 40 MG VIAL IVP SCH ×3 (09:21→20:05)
[2020-11-28] MEDS: Lisinopril 10 MG TAB PO SCH (09:22)
[2020-11-28] MEDS: Multivitamin W/ Minerals 1 TAB PO SCH (09:22)
[2020-11-28] MEDS: FLUoxetine HCl 10 MG CAP PO SCH (09:22)
[2020-11-28] MEDS: Acetaminophen 325 MG TAB PO PRN (09:23)
[2020-11-28] MEDS: Famotidine 20 MG TAB PO SCH (09:23)
[2020-11-28] MEDS: Benztropine 1 MG TAB PO SCH ×2 (09:24→20:02)
[2020-11-28] MEDS: Acetaminophen/Codeine 30-300mg Tablet PO PRN ×2 (12:09→20:48)
[2020-11-28 17:46] LABS: SARS-CoV-2 NAA Rapid Test Not Detected (NotDetected)
[2020-11-28] MEDS: Ibuprofen 800 MG TAB PO PRN (17:59)
[2020-11-28] MEDS: Albuterol Sulfate 1.25 MG/3 ML NEB NEB PRN (17:59)
[2020-11-28] MEDS: Nicotine 14 MG PATCH TOP SCH (20:02)
[2020-11-28] MEDS: Mometasone/Formoterol 200/5 60 PUFF INH SCH (20:08)
[2020-11-29] MEDS: Albuterol Sulfate 1.25 MG/3 ML NEB NEB PRN ×2 (01:16→09:18)
[2020-11-29] MEDS: Ibuprofen 800 MG TAB PO PRN ×2 (04:40→20:26)
[2020-11-29] MEDS: FLUoxetine HCl 10 MG CAP PO SCH (09:17)
[2020-11-29] MEDS: Lisinopril 10 MG TAB PO SCH (09:17)
[2020-11-29] MEDS: Multivitamin W/ Minerals 1 TAB PO SCH (09:17)
[2020-11-29] MEDS: Famotidine 20 MG TAB PO SCH (09:17)
[2020-11-29] MEDS: Benztropine 1 MG TAB PO SCH ×2 (09:18→20:27)
[2020-11-29] MEDS: methylPREDNISolone Sod Succ 40 MG VIAL IVP SCH ×3 (09:18→20:26)
[2020-11-29] MEDS: Mometasone/Formoterol 200/5 60 PUFF INH SCH ×2 (09:19→20:35)
[2020-11-29] MEDS: Acetaminophen/Codeine 30-300mg Tablet PO PRN (16:03)
[2020-11-29 17:16] VITALS: TEMP 98.6
[2020-11-29] MEDS: Nicotine 14 MG PATCH TOP SCH (20:27)
[2020-11-30 05:12] VITALS: BP 161/76
[2020-11-30] MEDS: Albuterol Sulfate 1.25 MG/3 ML NEB NEB PRN (06:06)
[2020-11-30] MEDS: Lisinopril 10 MG TAB PO SCH (09:05)
[2020-11-30] MEDS: Benztropine 1 MG TAB PO SCH (09:05)
[2020-11-30] MEDS: Famotidine 20 MG TAB PO SCH (09:05)
[2020-11-30] MEDS: methylPREDNISolone Sod Succ 40 MG VIAL IVP SCH ×2 (09:05→09:19)
[2020-11-30] MEDS: Multivitamin W/ Minerals 1 TAB PO SCH (09:06)
[2020-11-30] MEDS: Mometasone/Formoterol 200/5 60 PUFF INH SCH (09:06)
[2020-11-30] MEDS: FLUoxetine HCl 10 MG CAP PO SCH (09:06)
== END 2020-11-30 10:55 | disposition home or self-care (01) ==
LOC: BURERS 14:59 → BURMED 16:50 → INTOOBSV 16:50
PROVIDERS: ADMIT Family Medicine; ATTEND Family Medicine
DX: J44.1 Chronic obstructive pulmonary disease with (acute) exacerbation (principal); F17.210 Nicotine dependence, cigarettes, uncomplicated; I10 Essential (primary) hypertension; E78.5 Hyperlipidemia, unspecified; G89.29 Other chronic pain; R51.9 Headache, unspecified; F12.10 Cannabis abuse, uncomplicated; Z79.52 Long term (current) use of systemic steroids; Z79.899 Other long term (current) drug therapy; Z88.0 Allergy status to penicillin; Z88.5 Allergy status to narcotic agent; Z88.6 Allergy status to analgesic agent; Z88.8 Allergy status to other drugs, medicaments and biological substances; Z99.81 Dependence on supplemental oxygen; Z20.822 Contact with and (suspected) exposure to COVID-19; Z23 Encounter for immunization
CPT/HCPCS: 71045; 80053; 83880; 84484; 85025; 90471; 90732; 94640; 94664; 96365; 96375; 96376; G0009; G0378; J2920; J3475; J7611; Q0162; U0002; U0003; U0005

== ENCOUNTER 2021-03-15 16:14 | Emergency (ER) | payer MEDICARE, MEDICAID ==
[2021-03-15 16:54] LABS: #Lymphocytes 1.3 thou/uL (1.20-3.40); #Monocytes 0.1 thou/uL (0.11-0.59); #Neutrophils 9.4 thou/uL (1.40-6.50); %Basophils 0.4 % (0.0-1.0); %Eosinophils 0.3 % (0.0-10.0); %Lymphocytes 11.5 % (21.0-51.0); %Monocytes 1.2 % (0.0-10.0); %Neutrophils 86.6 % (42.0-75.0); Hemoglobin 15.5 g/dL (12.0-16.0); Mean Corpuscular HGB CONC 31.4 g/dL (32.0-36.0); Mean Corpuscular Hemoglobin 31.1 pg (27.0-31.0); Mean Platelet Volume 6.1 fL (7.4-10.4); Platelet Count 333 thou/uL (130-400); RBC Distribution Width 12.1 % (11.5-14.5); Red Blood Cell (RBC) Count 4.97 mill/uL (4.20-5.40); White Blood Cell (WBC) Count 10.9 thou/uL (4.8-10.8)
[2021-03-15 17:06] LABS: Base Excess-Venous -0.3 mmol/L (-2.0 to 3.0); Bicarbonate (HCO3v) 26.2 mmol/L (22.0-28.0); CO2 Tension (PvCO2) 47.8 mmHg (42.0-51.0); Chloride 108 mmol/L (98-107); Hemoglobin - Calc 18.1 g/dL (12.0-16.0); Potassium 4.2 mmol/L (3.5-5.1); Sodium 144 mmol/L (138-145); T. Carbon Dioxide 27.6 mmol/L (22.0-28.0); vO2 Saturation-calc 70.4 % (60.0-85.0)
[2021-03-15 17:10] LABS: ALT (SGPT) 15 U/L (8-55); AST (SGOT) 16 U/L (5-34); Albumin 4.1 g/dL (3.4-4.8); Alkaline Phosphatase 69 U/L (40-110); Anion Gap 15 mmol/L (10-20); BUN (Urea Nitrogen) 13 mg/dL (9.8-20.1); Bilirubin, Total 0.3 mg/dL (0.2-1.2); Calc. Creatinine Clearance 0 mL/min (70-130); Calcium 9.3 mg/dL (7.8-10.44); Carbon Dioxide 23 mmol/L (23-31); Chloride 107 mmol/L (98-107); Globulin 2.8 g/dL (2.4-3.5); Glucose 121 mg/dL (83-110); Potassium 4.1 mmol/L (3.5-5.1); Protein, Total 6.9 g/dL (5.8-8.1); Sodium 141 mmol/L (136-145)
[2021-03-15] MEDS ORDERED: Sodium Chloride 0.9% 100 ML ONE ×2 (17:44→17:47)
[2021-03-15] MEDS ORDERED: cefTRIAXone\\ROCEPHIN 2 GM VIAL ONE ×2 (17:44→17:47)
[2021-03-15] MEDS ORDERED: Azithromycin 500 MG VIAL ONE ×2 (17:53→18:22)
[2021-03-15 18:14] LABS: SARS-CoV-2 NAA Rapid Test Not Detected (NotDetected)
[2021-03-15] MEDS ORDERED: Ketorolac Tromethamine 30 MG/ML VIAL ONE (18:22)
[2021-03-15 18:29] LABS: Base Excess-Venous 0.4 mmol/L (-2.0 to 3.0); Bicarbonate (HCO3v) 25.2 mmol/L (22.0-28.0); CO2 Tension (PvCO2) 40.3 mmHg (42.0-51.0); Chloride 107 mmol/L (98-107); Hemoglobin - Calc 16.4 g/dL (12.0-16.0); Sodium 142 mmol/L (138-145); T. Carbon Dioxide 26.5 mmol/L (22.0-28.0); vO2 Saturation-calc 98.8 % (60.0-85.0)
[2021-03-15] MEDS ORDERED: Albuterol Sulfate 2.5 mg/0.5 ml Neb ONE (19:35)
[2021-03-15 19:40] LABS: Bilirubin Negative (Negative); Blood, Urine Negative (Negative); Clarity Clear (Clear); Glucose, Urine (Dipstick) 100 mg/dL (Negative); Ketone, Urine 40 mg/dL (Negative); Leukocyte Negative (Negative); Nitrite Negative (Negative); Protein, Urine (Dipstick) Negative (Neg-Trace); pH, Urine 6.5 (5.0-9.0)
== END 2021-03-15 20:30 | disposition short-term general hospital (02) ==
LOC: BURERS 16:14
DX: J44.1 Chronic obstructive pulmonary disease with (acute) exacerbation (principal); I10 Essential (primary) hypertension; E78.5 Hyperlipidemia, unspecified; F17.210 Nicotine dependence, cigarettes, uncomplicated; Z20.822 Contact with and (suspected) exposure to COVID-19; Z79.899 Other long term (current) drug therapy
CPT/HCPCS: 71045; 80053; 81003; 82330; 82435; 82803; 83605; 83880; 84132; 84295; 84484; 85014; 85025; 85379; 87040; 93005; 94760; 96365; 96366; 96367; 96375; 99285; U0002; 36415; J0456; J0696; J1885; J3490; J7611

== ENCOUNTER 2021-04-08 20:15 | Emergency (ER) | payer MEDICARE, MEDICAID ==
[2021-04-08] MEDS ORDERED: predniSONE 20 MG TAB ONE (20:49)
== END 2021-04-08 20:54 | disposition home or self-care (01) ==
LOC: BURERS 20:15
DX: J44.1 Chronic obstructive pulmonary disease with (acute) exacerbation (principal); Z79.899 Other long term (current) drug therapy; Z79.52 Long term (current) use of systemic steroids; F17.210 Nicotine dependence, cigarettes, uncomplicated
CPT/HCPCS: 99284; J7512

== ENCOUNTER 2021-05-21 18:27 | Emergency (ER) | payer MEDICARE, MEDICAID ==
[2021-05-21] MEDS ORDERED: Magnesium 2 GM/50 ML BAG (IN WATER) ONE (18:58)
[2021-05-21 19:14] LABS: #Basophils 0.1 thou/uL (0.0-0.2); #Eosinphils 0.1 thou/uL (0.0-0.7); #Monocytes 0.5 thou/uL (0.11-0.59); #Neutrophils 3.8 thou/uL (1.40-6.50); %Basophils 1.6 % (0.0-1.0); %Eosinophils 1.9 % (0.0-10.0); %Lymphocytes 39.6 % (21.0-51.0); %Monocytes 6.9 % (0.0-10.0); Hemoglobin 15.7 g/dL (12.0-16.0); Mean Corpuscular HGB CONC 33.2 g/dL (32.0-36.0); Mean Corpuscular Hemoglobin 31.4 pg (27.0-31.0); Mean Corpuscular Volume 94.5 fL (78.0-98.0); Mean Platelet Volume 5.6 fL (7.4-10.4); Platelet Count 314 thou/uL (130-400); RBC Distribution Width 11.6 % (11.5-14.5); Red Blood Cell (RBC) Count 5.01 mill/uL (4.20-5.40); White Blood Cell (WBC) Count 7.5 thou/uL (4.8-10.8)
[2021-05-21 19:21] LABS: ALT (SGPT) 17 U/L (8-55); AST (SGOT) 18 U/L (5-34); Alkaline Phosphatase 65 U/L (40-110); Anion Gap 17 mmol/L (10-20); BUN (Urea Nitrogen) 11 mg/dL (9.8-20.1); Bilirubin, Total 0.4 mg/dL (0.2-1.2); Calc. Creatinine Clearance 0 mL/min (70-130); Carbon Dioxide 23 mmol/L (23-31); Chloride 104 mmol/L (98-107); Globulin 2.6 g/dL (2.4-3.5); Glucose 103 mg/dL (83-110); Lipase 22 U/L (8-78); Potassium 4.3 mmol/L (3.5-5.1); Protein, Total 6.6 g/dL (5.8-8.1); Sodium 140 mmol/L (136-145)
[2021-05-21] MEDS ORDERED: Ketorolac Tromethamine 30 MG/ML VIAL ONE (19:53)
== END 2021-05-21 20:02 | disposition home or self-care (01) ==
LOC: BURERS 18:27
DX: J44.1 Chronic obstructive pulmonary disease with (acute) exacerbation (principal); R07.81 Pleurodynia; E78.5 Hyperlipidemia, unspecified; F17.210 Nicotine dependence, cigarettes, uncomplicated
CPT/HCPCS: 71045; 80053; 83690; 84484; 85025; 93005; 94760; 96365; 96375; J1885; J3475

== ENCOUNTER 2021-05-23 16:08 | Emergency (ER) | payer MEDICARE, MEDICAID ==
[2021-05-23 16:38] LABS: #Basophils 0.1 thou/uL (0.0-0.2); #Eosinphils 0.2 thou/uL (0.0-0.7); #Lymphocytes 4.3 thou/uL (1.20-3.40); #Monocytes 0.5 thou/uL (0.11-0.59); #Neutrophils 5.8 thou/uL (1.40-6.50); %Basophils 0.9 % (0.0-1.0); %Eosinophils 1.6 % (0.0-10.0); %Lymphocytes 39.7 % (21.0-51.0); %Monocytes 4.3 % (0.0-10.0); %Neutrophils 53.5 % (42.0-75.0); Hemoglobin 16.6 g/dL (12.0-16.0); Mean Corpuscular HGB CONC 32.8 g/dL (32.0-36.0); Mean Corpuscular Hemoglobin 31.4 pg (27.0-31.0); Mean Corpuscular Volume 95.7 fL (78.0-98.0); Mean Platelet Volume 5.7 fL (7.4-10.4); Platelet Count 375 thou/uL (130-400); RBC Distribution Width 11.9 % (11.5-14.5); White Blood Cell (WBC) Count 10.8 thou/uL (4.8-10.8)
[2021-05-23] MEDS ORDERED: methylPREDNISolone Sod Succ/PF 125 MG/2 ML VIAL ONE (16:50)
[2021-05-23] MEDS ORDERED: Azithromycin 500 MG VIAL ONE (16:50)
[2021-05-23] MEDS ORDERED: Ipratropium Bromide 2.5 ml Neb ONE (16:50)
[2021-05-23] MEDS ORDERED: Albuterol Sulfate 2.5 mg/0.5 ml Neb ONE (16:50)
[2021-05-23 16:53] LABS: ALT (SGPT) 19 U/L (8-55); AST (SGOT) 17 U/L (5-34); Albumin 4.5 g/dL (3.4-4.8); Alkaline Phosphatase 67 U/L (40-110); Anion Gap 16 mmol/L (10-20); BUN (Urea Nitrogen) 15 mg/dL (9.8-20.1); Bilirubin, Total 0.5 mg/dL (0.2-1.2); Calc. Creatinine Clearance 0 mL/min (70-130); Calcium 10.1 mg/dL (7.8-10.44); Carbon Dioxide 28 mmol/L (23-31); Chloride 102 mmol/L (98-107); Globulin 2.7 g/dL (2.4-3.5); Glucose 94 mg/dL (83-110); Potassium 3.9 mmol/L (3.5-5.1); Protein, Total 7.2 g/dL (5.8-8.1); Sodium 142 mmol/L (136-145)
[2021-05-23] MEDS ORDERED: Acetaminophen 325 MG Suppository ONE (16:59)
[2021-05-23] MEDS ORDERED: Acetaminophen 325 MG TAB ONE (17:00)
== END 2021-05-23 18:40 | disposition home or self-care (01) ==
LOC: BURERS 16:08
DX: J44.1 Chronic obstructive pulmonary disease with (acute) exacerbation (principal); E78.5 Hyperlipidemia, unspecified; I10 Essential (primary) hypertension; J44.9 Chronic obstructive pulmonary disease, unspecified; F17.210 Nicotine dependence, cigarettes, uncomplicated
CPT/HCPCS: 71045; 80053; 83880; 84484; 85025; 93005; 96365; 96375; J0456; J2930; J7611

== ENCOUNTER 2021-05-24 20:18 | Emergency (ER) | payer MEDICARE, OTHER ==
[2021-05-24] MEDS ORDERED: predniSONE 20 MG TAB ONE (21:15)
[2021-05-24] MEDS ORDERED: Albuterol Sulfate 2.5 mg/0.5 ml Neb ONE (21:40)
== END 2021-05-24 21:47 | disposition home or self-care (01) ==
LOC: BURERS 20:18
DX: J44.1 Chronic obstructive pulmonary disease with (acute) exacerbation (principal); I10 Essential (primary) hypertension; E78.5 Hyperlipidemia, unspecified; F17.210 Nicotine dependence, cigarettes, uncomplicated; Z79.899 Other long term (current) drug therapy
CPT/HCPCS: J7512; J7611; J7620

== ENCOUNTER 2021-05-26 15:55 | Inpatient (IN) | payer MEDICARE, MEDICAID ==
[2021-05-26 16:22] LABS: #Basophils 0.1 thou/uL (0.0-0.2); #Eosinphils 0.1 thou/uL (0.0-0.7); #Lymphocytes 2.9 thou/uL (1.20-3.40); #Monocytes 0.6 thou/uL (0.11-0.59); %Basophils 1.2 % (0.0-1.0); %Eosinophils 0.5 % (0.0-10.0); %Lymphocytes 27.3 % (21.0-51.0); %Monocytes 5.5 % (0.0-10.0); %Neutrophils 65.5 % (42.0-75.0); Hemoglobin 17.3 g/dL (12.0-16.0); Mean Corpuscular HGB CONC 33.1 g/dL (32.0-36.0); Mean Corpuscular Hemoglobin 31.3 pg (27.0-31.0); Mean Corpuscular Volume 94.4 fL (78.0-98.0); Mean Platelet Volume 5.7 fL (7.4-10.4); Platelet Count 385 thou/uL (130-400); RBC Distribution Width 11.6 % (11.5-14.5); Red Blood Cell (RBC) Count 5.52 mill/uL (4.20-5.40); White Blood Cell (WBC) Count 10.6 thou/uL (4.8-10.8)
[2021-05-26 16:39] LABS: ALT (SGPT) 17 U/L (8-55); AST (SGOT) 16 U/L (5-34); Albumin 4.4 g/dL (3.4-4.8); Alkaline Phosphatase 67 U/L (40-110); Anion Gap 16 mmol/L (10-20); BUN (Urea Nitrogen) 21 mg/dL (9.8-20.1); Bilirubin, Total 0.6 mg/dL (0.2-1.2); Calc. Creatinine Clearance 0 mL/min (70-130); Calcium 10.3 mg/dL (7.8-10.44); Carbon Dioxide 25 mmol/L (23-31); Chloride 103 mmol/L (98-107); Globulin 2.7 g/dL (2.4-3.5); Glucose 105 mg/dL (83-110); Protein, Total 7.1 g/dL (5.8-8.1); Sodium 140 mmol/L (136-145)
[2021-05-26 16:45] LABS: Base Excess-Venous 0.1 mmol/L (-2.0 to 3.0); Bicarbonate (HCO3v) 26.8 mmol/L (22.0-28.0); CO2 Tension (PvCO2) 49.5 mmHg (42.0-51.0); Calcium, Ionized 1.14 mmol/L (1.15-1.33); Chloride 103 mmol/L (98-107); Sodium 139 mmol/L (138-145); T. Carbon Dioxide 28.3 mmol/L (22.0-28.0); vO2 Saturation-calc 99.2 % (60.0-85.0)
[2021-05-26] MEDS ORDERED: Magnesium 2 GM/50 ML BAG (IN WATER) ONE (16:46)
[2021-05-26] MEDS ORDERED: cefTRIAXone\\ROCEPHIN 1 GM VIAL ONE (16:46)
[2021-05-26] MEDS ORDERED: Sodium Chloride 0.9% 100 ML ONE (16:46)
[2021-05-26] MEDS ORDERED: Albuterol Sulfate 1.25 MG/3 ML NEB ONE (17:16)
[2021-05-26 18:06] LABS: SARS-CoV-2 NAA Rapid Test Not Detected (NotDetected)
[2021-05-26] MEDS ORDERED: Azithromycin 500 MG VIAL ONE (18:07)
[2021-05-26] MEDS ORDERED: Ondansetron PF 4 MG/2 ML Vial IVP PRN (19:45)
[2021-05-26] MEDS ORDERED: Acetaminophen 325 MG TAB PO PRN (19:45)
[2021-05-26] MEDS ORDERED: Ondansetron ODT 4 MG TAB SL PRN (19:45)
[2021-05-26] MEDS ORDERED: Albuterol Sulfate 2.5 mg/3 ml Neb NEB PRN (20:31)
[2021-05-26] MEDS ORDERED: Propranolol HCl 20 MG TAB PO PRN (21:19)
[2021-05-26 21:21] VITALS: BMI 16.0
[2021-05-26] MEDS ORDERED: Benzonatate 100 MG CAP PO PRN (21:23)
[2021-05-26] MEDS ORDERED: Senokot 8.6 MG TAB PO PRN (21:24)
[2021-05-26] MEDS ORDERED: Melatonin 3 MG TAB PO PRN (21:24)
[2021-05-26] MEDS ORDERED: Enoxaparin Sodium 30 MG/0.3 ML SYRINGE SC SCH (22:00)
[2021-05-26] MEDS: Dextrose 5 %-0.45 % NaCl 1,000 ML IV SCH (22:34)
[2021-05-26] MEDS: methylPREDNISolone Sod Succ/PF 125 MG/2 ML VIAL IVP SCH (22:35)
[2021-05-27] MEDS: methylPREDNISolone Sod Succ/PF 125 MG/2 ML VIAL IVP SCH ×3 (06:13→21:26)
[2021-05-27] MEDS: Lisinopril 10 MG TAB PO SCH (09:33)
[2021-05-27] MEDS: Atorvastatin Calcium 10 MG TAB PO SCH (09:33)
[2021-05-27] MEDS: Cholecalciferol 1,000 UNITS (25 MCG) TAB PO SCH (09:33)
[2021-05-27] MEDS: Montelukast Sodium 10 mg Tablet PO SCH (09:33)
[2021-05-27] MEDS: Benztropine 1 MG TAB PO SCH ×2 (09:34→21:22)
[2021-05-27] MEDS: Amlodipine 5 MG TAB PO SCH (09:35)
[2021-05-27] MEDS: Dextrose 5 %-0.45 % NaCl 1,000 ML IV SCH (09:35)
[2021-05-27] MEDS ORDERED: Acetaminophen 500 MG TAB PO PRN (12:05)
[2021-05-27] MEDS: Nicotine 21 MG PATCH TOP SCH (13:15)
[2021-05-27] MEDS: cefTRIAXone\\ROCEPHIN 1 GM in Sodium Chloride 0.9% 100 ML IVPB SCH (17:49)
[2021-05-27] MEDS: Azithromycin 500 MG in Sodium Chloride 0.9% 250 ML 250 ML IVPB SCH (17:50)
[2021-05-27] MEDS ORDERED: traMADol HCl 50 MG TAB PO PRN (20:36)
[2021-05-27] MEDS: Famotidine 20 MG TAB PO SCH (21:23)
[2021-05-27] MEDS: Enoxaparin Sodium 30 MG/0.3 ML SYRINGE SC SCH (21:26)
[2021-05-28] MEDS: methylPREDNISolone Sod Succ/PF 125 MG/2 ML VIAL IVP SCH ×2 (06:06→15:25)
[2021-05-28] MEDS: Atorvastatin Calcium 10 MG TAB PO SCH (08:40)
[2021-05-28] MEDS: Cholecalciferol 1,000 UNITS (25 MCG) TAB PO SCH (08:40)
[2021-05-28] MEDS: Lisinopril 10 MG TAB PO SCH (08:41)
[2021-05-28] MEDS: Benztropine 1 MG TAB PO SCH ×2 (08:41→20:43)
[2021-05-28] MEDS: Montelukast Sodium 10 mg Tablet PO SCH (08:41)
[2021-05-28] MEDS: Amlodipine 5 MG TAB PO SCH (08:42)
[2021-05-28] MEDS: Famotidine 20 MG TAB PO SCH ×2 (08:42→20:44)
[2021-05-28] MEDS: Nicotine 21 MG PATCH TOP SCH (15:29)
[2021-05-28] MEDS: cefTRIAXone\\ROCEPHIN 1 GM in Sodium Chloride 0.9% 100 ML IVPB SCH (16:43)
[2021-05-28] MEDS: Azithromycin 500 MG in Sodium Chloride 0.9% 250 ML 250 ML IVPB SCH (17:59)
[2021-05-28] MEDS: Enoxaparin Sodium 30 MG/0.3 ML SYRINGE SC SCH (20:42)
[2021-05-29 04:36] VITALS: TEMP 97.9
[2021-05-29] MEDS: Famotidine 20 MG TAB PO SCH (08:24)
[2021-05-29] MEDS: Cholecalciferol 1,000 UNITS (25 MCG) TAB PO SCH (08:24)
[2021-05-29] MEDS: Lisinopril 10 MG TAB PO SCH (08:24)
[2021-05-29] MEDS: Benztropine 1 MG TAB PO SCH (08:25)
[2021-05-29] MEDS: Atorvastatin Calcium 10 MG TAB PO SCH (08:25)
[2021-05-29] MEDS: Montelukast Sodium 10 mg Tablet PO SCH (08:25)
[2021-05-29] MEDS: Amlodipine 5 MG TAB PO SCH (08:25)
[2021-05-29 12:53] VITALS: BP 179/84
[2021-05-29] MEDS: Nicotine 21 MG PATCH TOP SCH (13:36)
== END 2021-05-29 14:05 | disposition swing bed (61) | DRG 189 ==
LOC: BURERS 15:55 → BURMED 17:30
PROVIDERS: ADMIT Family Medicine; ATTEND Family Medicine
DX: J96.21 Acute and chronic respiratory failure with hypoxia (principal); J44.1 Chronic obstructive pulmonary disease with (acute) exacerbation; Z20.822 Contact with and (suspected) exposure to COVID-19; I10 Essential (primary) hypertension; F17.210 Nicotine dependence, cigarettes, uncomplicated; E78.5 Hyperlipidemia, unspecified; F31.9 Bipolar disorder, unspecified; Z60.2 Problems related to living alone; Z99.81 Dependence on supplemental oxygen; Z90.710 Acquired absence of both cervix and uterus; Z90.89 Acquired absence of other organs; Z90.49 Acquired absence of other specified parts of digestive tract; Z90.721 Acquired absence of ovaries, unilateral
CPT/HCPCS: 0241U; 36415; 71045; 80053; 82330; 82803; 83880; 84484; 85014; 85025; 94640; 94760; 96365; 96367; 96375; J0456; J0696; J1650; J2930; J3475; J3490; J7042; J7050; J7620; Q0162

== ENCOUNTER 2021-05-29 14:05 | Inpatient (IN) | payer MEDICARE, MEDICAID ==
[2021-05-29 14:53] VITALS: BMI 16.0
[2021-05-29] MEDS ORDERED: Enoxaparin Sodium 30 MG/0.3 ML SYRINGE SC SCH (15:15)
[2021-05-29] MEDS ORDERED: traMADol HCl 50 MG TAB PO PRN (17:14)
[2021-05-29] MEDS ORDERED: Propranolol HCl 20 MG TAB PO PRN (17:14)
[2021-05-29] MEDS ORDERED: Acetaminophen 500 MG TAB PO PRN (17:14)
[2021-05-29] MEDS ORDERED: Melatonin 3 MG TAB PO PRN (17:14)
[2021-05-29] MEDS ORDERED: Benzonatate 100 MG CAP PO PRN (17:14)
[2021-05-29] MEDS ORDERED: Senokot 8.6 MG TAB PO PRN (17:14)
[2021-05-29] MEDS ORDERED: Ondansetron ODT 4 MG TAB SL PRN (17:14)
[2021-05-29] MEDS ORDERED: Nicotine 21 MG PATCH TOP SCH (17:15)
[2021-05-29] MEDS ORDERED: Azithromycin 500 MG VIAL IVPB SCH (18:00)
[2021-05-29] MEDS ORDERED: methylPREDNISolone Sod Succ/PF 125 MG/2 ML VIAL IVP SCH (18:00)
[2021-05-29] MEDS ORDERED: METHYLPREDNISOLONE SODIUM SUCC IVPB SCH (18:30)
[2021-05-29] MEDS ORDERED: SODIUM CHLORIDE 0.9% IVPB SCH (18:30)
[2021-05-29] MEDS ORDERED: methylPREDNISolone Sod Succ 40 MG VIAL ONE (20:07)
[2021-05-29] MEDS: Benztropine 1 MG TAB PO SCH (20:13)
[2021-05-29] MEDS: Enoxaparin Sodium 30 MG/0.3 ML SYRINGE SC SCH (20:13)
[2021-05-29] MEDS: Famotidine 20 MG TAB PO SCH (20:14)
[2021-05-29] MEDS: cefTRIAXone\\ROCEPHIN 1 GM in Sodium Chloride 0.9% 100 ML IVPB SCH (20:59)
[2021-05-29] MEDS ORDERED: methylPREDNISolone Sod Succ 40 MG VIAL IVP SCH ×2 (21:00→21:15)
[2021-05-30] MEDS: Amlodipine 5 MG TAB PO SCH (09:27)
[2021-05-30] MEDS: Lisinopril 20 MG TAB PO SCH (09:28)
[2021-05-30] MEDS: Montelukast Sodium 10 mg Tablet PO SCH (09:29)
[2021-05-30] MEDS: Benztropine 1 MG TAB PO SCH ×2 (09:29→21:04)
[2021-05-30] MEDS: Multivitamin W/ Minerals 1 TAB PO SCH (09:29)
[2021-05-30] MEDS: Cholecalciferol 1,000 UNITS (25 MCG) TAB PO SCH (09:29)
[2021-05-30] MEDS: Atorvastatin Calcium 10 MG TAB PO SCH (09:29)
[2021-05-30] MEDS: Nicotine 21 MG PATCH TOP SCH (09:30)
[2021-05-30] MEDS: Famotidine 20 MG TAB PO SCH ×2 (09:30→21:04)
[2021-05-30] MEDS: methylPREDNISolone Sod Succ 40 MG VIAL IVP SCH (09:33)
[2021-05-30] MEDS ORDERED: Acetaminophen 500 MG TAB PO PRN (14:11)
[2021-05-30] MEDS ORDERED: traMADol HCl 50 MG TAB PO PRN (14:12)
[2021-05-30] MEDS ORDERED: Azithromycin 500 MG in Sodium Chloride 0.9% 250 ML 250 ML IVPB SCH (18:00)
[2021-05-30] MEDS ORDERED: cefTRIAXone\\ROCEPHIN 1 GM VIAL IVPB SCH (18:00)
[2021-05-30] MEDS: Enoxaparin Sodium 30 MG/0.3 ML SYRINGE SC SCH (21:04)
[2021-05-30] MEDS: cefTRIAXone\\ROCEPHIN 1 GM in Sodium Chloride 0.9% 100 ML IVPB SCH (21:19)
[2021-05-31] MEDS: Nicotine 21 MG PATCH TOP SCH (08:57)
[2021-05-31] MEDS: methylPREDNISolone Sod Succ 40 MG VIAL IVP SCH (08:57)
[2021-05-31] MEDS: Atorvastatin Calcium 10 MG TAB PO SCH (08:58)
[2021-05-31] MEDS: Montelukast Sodium 10 mg Tablet PO SCH (08:59)
[2021-05-31] MEDS: Lisinopril 20 MG TAB PO SCH (08:59)
[2021-05-31] MEDS: Famotidine 20 MG TAB PO SCH ×2 (08:59→20:16)
[2021-05-31] MEDS: Amlodipine 5 MG TAB PO SCH (09:00)
[2021-05-31] MEDS: Cholecalciferol 1,000 UNITS (25 MCG) TAB PO SCH (09:01)
[2021-05-31] MEDS: Benztropine 1 MG TAB PO SCH ×2 (09:01→20:16)
[2021-05-31] MEDS: Multivitamin W/ Minerals 1 TAB PO SCH (09:02)
[2021-05-31] MEDS: Enoxaparin Sodium 30 MG/0.3 ML SYRINGE SC SCH (20:16)
[2021-05-31] MEDS: cefTRIAXone\\ROCEPHIN 1 GM in Sodium Chloride 0.9% 100 ML IVPB SCH (20:17)
[2021-06-01 05:49] VITALS: TEMP 98.9
[2021-06-01] MEDS ORDERED: predniSONE 20 MG TAB PO SCH (08:00)
[2021-06-01] MEDS: Montelukast Sodium 10 mg Tablet PO SCH (08:13)
[2021-06-01] MEDS: methylPREDNISolone Sod Succ 40 MG VIAL IVP SCH (08:13)
[2021-06-01] MEDS: Cholecalciferol 1,000 UNITS (25 MCG) TAB PO SCH (08:14)
[2021-06-01] MEDS: Atorvastatin Calcium 10 MG TAB PO SCH (08:14)
[2021-06-01] MEDS: Nicotine 21 MG PATCH TOP SCH (08:14)
[2021-06-01] MEDS: Amlodipine 5 MG TAB PO SCH (08:14)
[2021-06-01] MEDS: Famotidine 20 MG TAB PO SCH (08:14)
[2021-06-01] MEDS: Benztropine 1 MG TAB PO SCH (08:15)
[2021-06-01] MEDS: Multivitamin W/ Minerals 1 TAB PO SCH (08:15)
[2021-06-01] MEDS: Lisinopril 20 MG TAB PO SCH (08:16)
[2021-06-01 08:34] VITALS: BP 121/72
== END 2021-06-01 13:00 | disposition home or self-care (01) | DRG 191 ==
LOC: BURMED 14:05
PROVIDERS: ADMIT Family Medicine; ATTEND Family Medicine
DX: J44.1 Chronic obstructive pulmonary disease with (acute) exacerbation (principal); R64 Cachexia; Z68.1 Body mass index [BMI] 19.9 or less, adult; I10 Essential (primary) hypertension; F31.9 Bipolar disorder, unspecified; R09.02 Hypoxemia; F17.210 Nicotine dependence, cigarettes, uncomplicated; E78.5 Hyperlipidemia, unspecified; Z90.710 Acquired absence of both cervix and uterus; Z90.49 Acquired absence of other specified parts of digestive tract
CPT/HCPCS: J0456; J0696; J1650; J2920; J3490; J7050; J7620; Q0162

== ENCOUNTER 2021-06-06 22:22 | Emergency (ER) | payer MEDICARE, OTHER ==
[2021-06-06] MEDS ORDERED: predniSONE 20 MG TAB ONE (22:36)
[2021-06-06] MEDS ORDERED: Acetaminophen 500 MG TAB ONE (22:59)
== END 2021-06-06 23:15 | disposition home or self-care (01) ==
LOC: BURERS 22:22
DX: J44.1 Chronic obstructive pulmonary disease with (acute) exacerbation (principal); I10 Essential (primary) hypertension; E78.5 Hyperlipidemia, unspecified; F17.210 Nicotine dependence, cigarettes, uncomplicated
CPT/HCPCS: 99284; J7512; J7620

== ENCOUNTER 2021-06-28 13:15 | Emergency (ER) | payer MEDICARE, OTHER ==
[2021-06-28 14:00] LABS: #Basophils 0.1 thou/uL (0.0-0.2); #Lymphocytes 0.6 thou/uL (1.20-3.40); #Monocytes 0.4 thou/uL (0.11-0.59); #Neutrophils 4.4 thou/uL (1.40-6.50); %Basophils 1.2 % (0.0-1.0); %Eosinophils 0.1 % (0.0-10.0); %Lymphocytes 10.9 % (21.0-51.0); %Monocytes 6.6 % (0.0-10.0); %Neutrophils 81.1 % (42.0-75.0); Hemoglobin 15.4 g/dL (12.0-16.0); Mean Corpuscular HGB CONC 34.3 g/dL (32.0-36.0); Mean Corpuscular Hemoglobin 31.8 pg (27.0-31.0); Mean Corpuscular Volume 92.7 fL (78.0-98.0); Mean Platelet Volume 6.2 fL (7.4-10.4); Platelet Count 267 thou/uL (130-400); RBC Distribution Width 11.8 % (11.5-14.5); Red Blood Cell (RBC) Count 4.85 mill/uL (4.20-5.40); White Blood Cell (WBC) Count 5.5 thou/uL (4.8-10.8)
[2021-06-28 14:14] LABS: ALT (SGPT) 18 U/L (8-55); AST (SGOT) 21 U/L (5-34); Albumin 4.1 g/dL (3.4-4.8); Alkaline Phosphatase 68 U/L (40-110); Anion Gap 18 mmol/L (10-20); BUN (Urea Nitrogen) 12 mg/dL (9.8-20.1); Bilirubin, Total 0.6 mg/dL (0.2-1.2); Calc. Creatinine Clearance 0 mL/min (70-130); Calcium 9.5 mg/dL (7.8-10.44); Carbon Dioxide 24 mmol/L (23-31); Chloride 101 mmol/L (98-107); Globulin 2.7 g/dL (2.4-3.5); Glucose 114 mg/dL (83-110); Potassium 4.1 mmol/L (3.5-5.1); Protein, Total 6.8 g/dL (5.8-8.1); Sodium 139 mmol/L (136-145)
[2021-06-28 16:16] LABS: SARS-CoV-2 NAA Rapid Test Not Detected (NotDetected)
[2021-06-28] MEDS ORDERED: methylPREDNISolone Sod Succ/PF 125 MG/2 ML VIAL ONE (20:00)
== END 2021-06-28 21:40 | disposition short-term general hospital (02) ==
LOC: BURERS 13:15
DX: J44.1 Chronic obstructive pulmonary disease with (acute) exacerbation (principal); Z20.822 Contact with and (suspected) exposure to COVID-19; I10 Essential (primary) hypertension; E78.5 Hyperlipidemia, unspecified; F17.210 Nicotine dependence, cigarettes, uncomplicated; Z79.899 Other long term (current) drug therapy
CPT/HCPCS: 71045; 80053; 83880; 84484; 85025; 93005; U0002; 36415; 96374; J2930; J7620

== ENCOUNTER 2021-07-24 14:52 | Emergency (ER) | payer MEDICARE, OTHER ==
[2021-07-24] MEDS ORDERED: Iopamidol 370 76% 100 ML VIAL FS ONE (14:53)
[2021-07-24 15:57] LABS: #Basophils 0.1 thou/uL (0.0-0.2); #Eosinphils 0.1 thou/uL (0.0-0.7); #Lymphocytes 1.4 thou/uL (1.20-3.40); #Monocytes 0.2 thou/uL (0.11-0.59); #Neutrophils 4.6 thou/uL (1.40-6.50); %Basophils 1.3 % (0.0-1.0); %Eosinophils 1.4 % (0.0-10.0); %Lymphocytes 22.2 % (21.0-51.0); %Monocytes 3.4 % (0.0-10.0); %Neutrophils 71.8 % (42.0-75.0); Hemoglobin 15.8 g/dL (12.0-16.0); Mean Corpuscular Hemoglobin 31.1 pg (27.0-31.0); Mean Corpuscular Volume 94.3 fL (78.0-98.0); Mean Platelet Volume 5.6 fL (7.4-10.4); Platelet Count 298 thou/uL (130-400); RBC Distribution Width 12.2 % (11.5-14.5); Red Blood Cell (RBC) Count 5.07 mill/uL (4.20-5.40); White Blood Cell (WBC) Count 6.3 thou/uL (4.8-10.8)
[2021-07-24 16:48] LABS: ALT (SGPT) 19 U/L (8-55); AST (SGOT) 18 U/L (5-34); Albumin 4.4 g/dL (3.4-4.8); Alkaline Phosphatase 73 U/L (40-110); Anion Gap 16 mmol/L (10-20); BUN (Urea Nitrogen) 14 mg/dL (9.8-20.1); Bilirubin, Total 0.6 mg/dL (0.2-1.2); Calc. Creatinine Clearance 0 mL/min (70-130); Carbon Dioxide 24 mmol/L (23-31); Chloride 106 mmol/L (98-107); Globulin 2.8 g/dL (2.4-3.5); Glucose 99 mg/dL (83-110); Potassium 4.2 mmol/L (3.5-5.1); Protein, Total 7.2 g/dL (5.8-8.1); Sodium 142 mmol/L (136-145)
[2021-07-24] MEDS ORDERED: Acetaminophen 500 MG TAB ONE (16:59)
[2021-07-24] MEDS ORDERED: Magnesium 2 GM/50 ML BAG (IN WATER) ONE (17:13)
[2021-07-24] MEDS ORDERED: Azithromycin 500 MG VIAL ONE (18:40)
[2021-07-24] MEDS ORDERED: cefTRIAXone\\ROCEPHIN 2 GM VIAL ONE (18:40)
[2021-07-25] MEDS ORDERED: Albuterol Sulfate 1.25 MG/3 ML NEB ONE (01:06)
[2021-07-25] MEDS ORDERED: Albuterol Sulfate 2.5 mg/3 ml Neb ONE ×2 (01:11→05:54)
[2021-07-25] MEDS ORDERED: Albuterol Sulfate 2.5 mg/0.5 ml Neb ONE (05:52)
[2021-07-25] MEDS ORDERED: predniSONE 20 MG TAB ONE (07:59)
[2021-07-25 16:51] LABS: SARS-CoV-2 PCR by NAA Not Detected (NotDetected)
== END 2021-07-25 10:00 | disposition home or self-care (01) ==
LOC: BURERS 14:52
DX: J44.1 Chronic obstructive pulmonary disease with (acute) exacerbation (principal); J18.9 Pneumonia, unspecified organism; Z20.822 Contact with and (suspected) exposure to COVID-19; I10 Essential (primary) hypertension; E78.5 Hyperlipidemia, unspecified; F17.210 Nicotine dependence, cigarettes, uncomplicated; Z79.899 Other long term (current) drug therapy
CPT/HCPCS: 71045; 71275; 80053; 83605; 83880; 84484; 85025; 85379; 87040; 93005; 94760; U0003; U0005; 36415; 96365; 96366; 96367; 96375; J0456; J0696; J3475; J7512; J7611; J7620; Q9967

== ENCOUNTER 2021-07-25 15:01 | Emergency (ER) | payer MEDICARE, OTHER ==
[2021-07-25] MEDS ORDERED: Albuterol Sulfate 2.5 mg/3 ml Neb ONE (15:27)
[2021-07-25 17:01] LABS: #Monocytes 0.3 thou/uL (0.11-0.59); #Neutrophils 7.9 thou/uL (1.40-6.50); %Basophils 0.2 % (0.0-1.0); %Lymphocytes 10.6 % (21.0-51.0); %Monocytes 3.1 % (0.0-10.0); %Neutrophils 86.1 % (42.0-75.0); Hemoglobin 14.5 g/dL (12.0-16.0); Mean Corpuscular HGB CONC 32.9 g/dL (32.0-36.0); Mean Corpuscular Hemoglobin 31.1 pg (27.0-31.0); Mean Corpuscular Volume 94.5 fL (78.0-98.0); Mean Platelet Volume 5.9 fL (7.4-10.4); Platelet Count 300 thou/uL (130-400); RBC Distribution Width 12.2 % (11.5-14.5); Red Blood Cell (RBC) Count 4.67 mill/uL (4.20-5.40); White Blood Cell (WBC) Count 9.2 thou/uL (4.8-10.8)
[2021-07-25 17:17] LABS: ALT (SGPT) 18 U/L (8-55); AST (SGOT) 16 U/L (5-34); Albumin 4.3 g/dL (3.4-4.8); Alkaline Phosphatase 67 U/L (40-110); Anion Gap 14 mmol/L (10-20); BUN (Urea Nitrogen) 14 mg/dL (9.8-20.1); Bilirubin, Total 0.4 mg/dL (0.2-1.2); Calc. Creatinine Clearance 0 mL/min (70-130); Calcium 9.8 mg/dL (7.8-10.44); Carbon Dioxide 25 mmol/L (23-31); Chloride 107 mmol/L (98-107); Globulin 2.7 g/dL (2.4-3.5); Glucose 174 mg/dL (83-110); Potassium 4.3 mmol/L (3.5-5.1); Sodium 142 mmol/L (136-145)
[2021-07-25] MEDS ORDERED: Albuterol Sulfate 2.5 mg/0.5 ml Neb ONE (19:14)
[2021-07-25] MEDS ORDERED: Doxycycline 100 MG CAP ONE (19:17)
== END 2021-07-25 21:20 | disposition short-term general hospital (02) ==
LOC: BURERS 15:01
DX: J44.1 Chronic obstructive pulmonary disease with (acute) exacerbation (principal); I10 Essential (primary) hypertension; E78.5 Hyperlipidemia, unspecified; F17.210 Nicotine dependence, cigarettes, uncomplicated; Z79.899 Other long term (current) drug therapy; J18.9 Pneumonia, unspecified organism; Z20.822 Contact with and (suspected) exposure to COVID-19
CPT/HCPCS: 36415; 80053; 83880; 84484; 85025; 93005; 94760; J7512; J7611

== ENCOUNTER 2021-08-02 17:43 | Inpatient (IN) | payer MEDICARE, MEDICAID ==
[2021-08-02 22:48] VITALS: BMI 17.3
[2021-08-02] MEDS ORDERED: Bisacodyl 10 MG SUPP PR PRN (23:23)
[2021-08-02] MEDS ORDERED: Bisacodyl 5 MG TAB PO PRN (23:23)
[2021-08-03] MEDS: Albuterol 200 PUFF (6.7GM INHALER) INH SCH ×5 (02:00→21:47)
[2021-08-03] MEDS: Vit A,C & E/Lutein/Minerals Tablet PO SCH (09:29)
[2021-08-03] MEDS: Amlodipine 5 MG TAB PO SCH (09:30)
[2021-08-03] MEDS: Montelukast Sodium 10 mg Tablet PO SCH (09:31)
[2021-08-03] MEDS: Dexamethasone 4 MG TAB PO SCH ×2 (09:31→17:02)
[2021-08-03] MEDS: Benztropine 1 MG TAB PO SCH ×2 (09:31→21:46)
[2021-08-03] MEDS: Propranolol HCl 20 MG TAB PO SCH ×2 (09:31→21:46)
[2021-08-03] MEDS: Lisinopril 20 MG TAB PO SCH (09:34)
[2021-08-03] MEDS: Cholecalciferol 1,000 UNITS (25 MCG) TAB PO SCH (09:34)
[2021-08-03] MEDS: Atorvastatin Calcium 10 MG TAB PO SCH (09:39)
[2021-08-03] MEDS: Acetaminophen 325 MG TAB PO PRN (11:55)
[2021-08-04] MEDS ORDERED: Nitroglycerin 0.4 MG TAB 1 EACH ONE (01:03)
[2021-08-04] MEDS ORDERED: Aspirin Chewable 81 MG TAB ONE (01:03)
[2021-08-04] MEDS: Albuterol 200 PUFF (6.7GM INHALER) INH SCH ×5 (05:01→21:00)
[2021-08-04] MEDS: Dexamethasone 4 MG TAB PO SCH ×2 (08:57→18:03)
[2021-08-04] MEDS: Atorvastatin Calcium 10 MG TAB PO SCH (08:58)
[2021-08-04] MEDS: Lisinopril 20 MG TAB PO SCH (08:58)
[2021-08-04] MEDS: Benzonatate 100 MG CAP PO PRN (08:59)
[2021-08-04] MEDS: Montelukast Sodium 10 mg Tablet PO SCH (08:59)
[2021-08-04] MEDS: Cholecalciferol 1,000 UNITS (25 MCG) TAB PO SCH (08:59)
[2021-08-04] MEDS: Vit A,C & E/Lutein/Minerals Tablet PO SCH (09:00)
[2021-08-04] MEDS: Amlodipine 5 MG TAB PO SCH (09:00)
[2021-08-04] MEDS: Benztropine 1 MG TAB PO SCH ×2 (09:00→20:28)
[2021-08-04] MEDS: Propranolol HCl 20 MG TAB PO SCH ×2 (09:00→20:28)
[2021-08-04] MEDS: Acetaminophen 325 MG TAB PO PRN (09:05)
[2021-08-04] MEDS ORDERED: Acetaminophen/Codeine 30-300mg Tablet PO SCH (13:30)
[2021-08-04] MEDS ORDERED: Ibuprofen 600 MG TAB PO SCH (20:00)
[2021-08-05] MEDS: Lorazepam 0.5 MG TAB PO PRN ×2 (01:55→17:35)
[2021-08-05] MEDS: Albuterol 200 PUFF (6.7GM INHALER) INH SCH ×5 (05:22→22:12)
[2021-08-05] MEDS: Dexamethasone 4 MG TAB PO SCH ×2 (09:58→17:35)
[2021-08-05] MEDS: Montelukast Sodium 10 mg Tablet PO SCH (09:58)
[2021-08-05] MEDS: Benztropine 1 MG TAB PO SCH ×2 (09:58→22:11)
[2021-08-05] MEDS: Propranolol HCl 20 MG TAB PO SCH ×2 (09:58→22:11)
[2021-08-05] MEDS: Atorvastatin Calcium 10 MG TAB PO SCH (09:59)
[2021-08-05] MEDS: Amlodipine 5 MG TAB PO SCH (09:59)
[2021-08-05] MEDS: Lisinopril 20 MG TAB PO SCH (09:59)
[2021-08-05] MEDS: Cholecalciferol 1,000 UNITS (25 MCG) TAB PO SCH (09:59)
[2021-08-05] MEDS: Acetaminophen 325 MG TAB PO PRN (10:00)
[2021-08-05] MEDS: Benzonatate 100 MG CAP PO PRN (10:00)
[2021-08-05] MEDS: Vit A,C & E/Lutein/Minerals Tablet PO SCH (10:01)
[2021-08-06] MEDS: Lorazepam 0.5 MG TAB PO PRN ×2 (01:55→20:17)
[2021-08-06] MEDS: Albuterol 200 PUFF (6.7GM INHALER) INH SCH ×5 (05:29→20:19)
[2021-08-06] MEDS: Lisinopril 20 MG TAB PO SCH (09:20)
[2021-08-06] MEDS: Benztropine 1 MG TAB PO SCH ×2 (09:21→20:17)
[2021-08-06] MEDS: Atorvastatin Calcium 10 MG TAB PO SCH (09:21)
[2021-08-06] MEDS: Cholecalciferol 1,000 UNITS (25 MCG) TAB PO SCH (09:22)
[2021-08-06] MEDS: Amlodipine 5 MG TAB PO SCH (09:22)
[2021-08-06] MEDS: Dexamethasone 4 MG TAB PO SCH ×2 (09:23→18:21)
[2021-08-06] MEDS: Propranolol HCl 20 MG TAB PO SCH ×2 (09:23→20:17)
[2021-08-06] MEDS: Acetaminophen 325 MG TAB PO PRN ×2 (09:23→18:21)
[2021-08-06] MEDS: Benzonatate 100 MG CAP PO PRN ×2 (09:23→18:21)
[2021-08-06] MEDS: Vit A,C & E/Lutein/Minerals Tablet PO SCH (09:23)
[2021-08-06] MEDS: Montelukast Sodium 10 mg Tablet PO SCH (09:24)
[2021-08-06] MEDS: Nicotine 14 MG PATCH TOP SCH (12:32)
[2021-08-07] MEDS: Acetaminophen 325 MG TAB PO PRN ×3 (01:13→18:02)
[2021-08-07] MEDS: Albuterol 200 PUFF (6.7GM INHALER) INH SCH ×5 (06:18→21:09)
[2021-08-07] MEDS: Propranolol HCl 20 MG TAB PO SCH ×2 (11:26→21:08)
[2021-08-07] MEDS: Benztropine 1 MG TAB PO SCH ×2 (11:27→21:10)
[2021-08-07] MEDS: Vit A,C & E/Lutein/Minerals Tablet PO SCH (11:27)
[2021-08-07] MEDS: Benzonatate 100 MG CAP PO PRN ×2 (11:27→18:10)
[2021-08-07] MEDS: Cholecalciferol 1,000 UNITS (25 MCG) TAB PO SCH (11:27)
[2021-08-07] MEDS: Amlodipine 5 MG TAB PO SCH (11:27)
[2021-08-07] MEDS: Dexamethasone 4 MG TAB PO SCH ×2 (11:28→18:02)
[2021-08-07] MEDS: Lisinopril 20 MG TAB PO SCH (11:28)
[2021-08-07] MEDS: Atorvastatin Calcium 10 MG TAB PO SCH (11:28)
[2021-08-07] MEDS: Nicotine 14 MG PATCH TOP SCH (11:29)
[2021-08-07] MEDS: Montelukast Sodium 10 mg Tablet PO SCH (11:29)
[2021-08-07] MEDS: Acetaminophen/Codeine 30-300mg Tablet PO PRN (21:12)
[2021-08-08] MEDS: Lorazepam 0.5 MG TAB PO PRN ×2 (01:15→17:34)
[2021-08-08] MEDS: Albuterol 200 PUFF (6.7GM INHALER) INH SCH ×5 (05:14→21:35)
[2021-08-08] MEDS: Montelukast Sodium 10 mg Tablet PO SCH (09:55)
[2021-08-08] MEDS: Vit A,C & E/Lutein/Minerals Tablet PO SCH (09:55)
[2021-08-08] MEDS: Cholecalciferol 1,000 UNITS (25 MCG) TAB PO SCH (09:55)
[2021-08-08] MEDS: Propranolol HCl 20 MG TAB PO SCH ×2 (09:55→20:52)
[2021-08-08] MEDS: Benztropine 1 MG TAB PO SCH ×2 (09:56→20:52)
[2021-08-08] MEDS: Dexamethasone 4 MG TAB PO SCH ×2 (09:56→17:34)
[2021-08-08] MEDS: Atorvastatin Calcium 10 MG TAB PO SCH (09:56)
[2021-08-08] MEDS: Amlodipine 5 MG TAB PO SCH (09:56)
[2021-08-08] MEDS: Lisinopril 20 MG TAB PO SCH (09:57)
[2021-08-08] MEDS: Nicotine 14 MG PATCH TOP SCH (09:57)
[2021-08-08] MEDS: Benzonatate 100 MG CAP PO PRN (12:03)
[2021-08-08] MEDS: Acetaminophen/Codeine 30-300mg Tablet PO PRN ×2 (12:04→18:00)
[2021-08-08] MEDS ORDERED: Mag-Al Plus 1200 MG/1200 MG/120 MG/30 ML UDCUP PO SCH (19:15)
[2021-08-08] MEDS ORDERED: Lidocaine Viscous Sol 2% 15 ml UD Cup SSW SCH (19:15)
[2021-08-08] MEDS ORDERED: Lidocaine Viscous Sol 2% 15 ml UD Cup ONE (20:49)
[2021-08-09] MEDS: Albuterol 200 PUFF (6.7GM INHALER) INH SCH ×5 (06:08→21:07)
[2021-08-09] MEDS: Propranolol HCl 20 MG TAB PO SCH ×2 (09:13→21:08)
[2021-08-09] MEDS: Cholecalciferol 1,000 UNITS (25 MCG) TAB PO SCH (09:13)
[2021-08-09] MEDS: Vit A,C & E/Lutein/Minerals Tablet PO SCH (09:14)
[2021-08-09] MEDS: Atorvastatin Calcium 10 MG TAB PO SCH (09:15)
[2021-08-09] MEDS: Dexamethasone 4 MG TAB PO SCH (09:15)
[2021-08-09] MEDS: Lisinopril 20 MG TAB PO SCH (09:15)
[2021-08-09] MEDS: Nicotine 14 MG PATCH TOP SCH (09:16)
[2021-08-09] MEDS: Montelukast Sodium 10 mg Tablet PO SCH (09:16)
[2021-08-09] MEDS: Amlodipine 5 MG TAB PO SCH (09:17)
[2021-08-09] MEDS: Benztropine 1 MG TAB PO SCH ×2 (09:17→21:09)
[2021-08-09] MEDS: Acetaminophen/Codeine 30-300mg Tablet PO PRN ×2 (09:28→21:12)
[2021-08-09] MEDS: Benzonatate 100 MG CAP PO PRN (09:28)
[2021-08-09] MEDS: Lorazepam 0.5 MG TAB PO PRN (14:57)
[2021-08-10] MEDS: Albuterol 200 PUFF (6.7GM INHALER) INH SCH ×5 (05:52→21:23)
[2021-08-10] MEDS: Propranolol HCl 20 MG TAB PO SCH ×2 (08:56→21:21)
[2021-08-10] MEDS: Atorvastatin Calcium 10 MG TAB PO SCH (08:56)
[2021-08-10] MEDS: Benztropine 1 MG TAB PO SCH ×2 (08:57→21:21)
[2021-08-10] MEDS: Lisinopril 20 MG TAB PO SCH (08:58)
[2021-08-10] MEDS: Cholecalciferol 1,000 UNITS (25 MCG) TAB PO SCH (08:58)
[2021-08-10] MEDS: Vit A,C & E/Lutein/Minerals Tablet PO SCH (08:58)
[2021-08-10] MEDS: Amlodipine 5 MG TAB PO SCH (08:59)
[2021-08-10] MEDS: Dexamethasone 4 MG TAB PO SCH (08:59)
[2021-08-10] MEDS: Montelukast Sodium 10 mg Tablet PO SCH (09:00)
[2021-08-10] MEDS: Nicotine 14 MG PATCH TOP SCH (09:08)
[2021-08-11] MEDS: Albuterol 200 PUFF (6.7GM INHALER) INH SCH ×2 (05:44→10:48)
[2021-08-11 05:51] VITALS: TEMP 98.1
[2021-08-11] MEDS: Atorvastatin Calcium 10 MG TAB PO SCH (10:49)
[2021-08-11] MEDS: Amlodipine 5 MG TAB PO SCH (10:49)
[2021-08-11] MEDS: Benztropine 1 MG TAB PO SCH (10:49)
[2021-08-11] MEDS: Dexamethasone 4 MG TAB PO SCH (10:50)
[2021-08-11] MEDS: Propranolol HCl 20 MG TAB PO SCH (10:50)
[2021-08-11] MEDS: Nicotine 14 MG PATCH TOP SCH (10:50)
[2021-08-11] MEDS: Vit A,C & E/Lutein/Minerals Tablet PO SCH (10:51)
[2021-08-11] MEDS: Montelukast Sodium 10 mg Tablet PO SCH (10:51)
[2021-08-11] MEDS: Benzonatate 100 MG CAP PO PRN (10:51)
[2021-08-11] MEDS: Cholecalciferol 1,000 UNITS (25 MCG) TAB PO SCH (10:51)
[2021-08-11] MEDS: Lisinopril 20 MG TAB PO SCH (10:51)
[2021-08-11 10:52] VITALS: BP 116/68
[2021-08-11] MEDS: Acetaminophen/Codeine 30-300mg Tablet PO PRN (11:02)
== END 2021-08-11 14:15 | DRG 190 ==
LOC: BURMED 22:18
PROVIDERS: ADMIT Family Medicine; ATTEND Family Medicine
DX: J44.1 Chronic obstructive pulmonary disease with (acute) exacerbation (principal); U07.1 COVID-19; I10 Essential (primary) hypertension; F32.9 Major depressive disorder, single episode, unspecified; R53.1 Weakness; E78.5 Hyperlipidemia, unspecified; G43.909 Migraine, unspecified, not intractable, without status migrainosus; F17.210 Nicotine dependence, cigarettes, uncomplicated; F41.9 Anxiety disorder, unspecified; Z90.710 Acquired absence of both cervix and uterus; Z90.89 Acquired absence of other organs; Z98.890 Other specified postprocedural states; Z79.899 Other long term (current) drug therapy; Z88.0 Allergy status to penicillin; Z88.8 Allergy status to other drugs, medicaments and biological substances
CPT/HCPCS: 36415; 70450; 84484; J8540

== ENCOUNTER 2021-08-19 19:16 | Emergency (ER) | payer MEDICARE, MEDICAID ==
[2021-08-19 20:12] LABS: #Basophils 0.1 thou/uL (0.0-0.2); #Eosinphils 0.3 thou/uL (0.0-0.7); #Monocytes 0.5 thou/uL (0.11-0.59); #Neutrophils 3.8 thou/uL (1.40-6.50); %Basophils 1.5 % (0.0-1.0); %Eosinophils 3.9 % (0.0-10.0); %Lymphocytes 30.1 % (21.0-51.0); %Monocytes 7.6 % (0.0-10.0); %Neutrophils 56.9 % (42.0-75.0); Hemoglobin 14.2 g/dL (12.0-16.0); Mean Corpuscular HGB CONC 32.9 g/dL (32.0-36.0); Mean Corpuscular Hemoglobin 31.4 pg (27.0-31.0); Mean Corpuscular Volume 95.3 fL (78.0-98.0); Mean Platelet Volume 5.2 fL (7.4-10.4); Platelet Count 318 thou/uL (130-400); RBC Distribution Width 13.1 % (11.5-14.5); Red Blood Cell (RBC) Count 4.54 mill/uL (4.20-5.40); White Blood Cell (WBC) Count 6.6 thou/uL (4.8-10.8)
[2021-08-19] MEDS ORDERED: Doxycycline 100 MG CAP ONE (20:19)
[2021-08-19] MEDS ORDERED: methylPREDNISolone Sod Succ/PF 125 MG/2 ML VIAL ONE (20:19)
[2021-08-19] MEDS ORDERED: Albuterol Sulfate 2.5 mg/0.5 ml Neb ONE (20:19)
[2021-08-19 20:26] LABS: ALT (SGPT) 22 U/L (8-55); AST (SGOT) 22 U/L (5-34); Albumin 3.9 g/dL (3.4-4.8); Alkaline Phosphatase 81 U/L (40-110); Anion Gap 18 mmol/L (10-20); BUN (Urea Nitrogen) 13 mg/dL (9.8-20.1); Bilirubin, Total 0.5 mg/dL (0.2-1.2); Calc. Creatinine Clearance 0 mL/min (70-130); Calcium 9.5 mg/dL (7.8-10.44); Carbon Dioxide 24 mmol/L (23-31); Chloride 101 mmol/L (98-107); Glucose 108 mg/dL (83-110); Potassium 3.9 mmol/L (3.5-5.1); Protein, Total 5.9 g/dL (5.8-8.1); Sodium 139 mmol/L (136-145)
[2021-08-19] MEDS ORDERED: Promethazine HCl 25 MG/ML VIAL ONE (21:04)
[2021-08-20 00:02] LABS: SARS-CoV-2 NAA Rapid Test DETECTED (NotDetected)
== END 2021-08-19 23:04 ==
LOC: BURERS 19:16
DX: U07.1 COVID-19 (principal); J12.82 Pneumonia due to coronavirus disease 2019; J44.1 Chronic obstructive pulmonary disease with (acute) exacerbation; I10 Essential (primary) hypertension; E78.5 Hyperlipidemia, unspecified; F17.210 Nicotine dependence, cigarettes, uncomplicated; Z79.899 Other long term (current) drug therapy
CPT/HCPCS: 36415; 71045; 80053; 83880; 84484; 85025; 87040; 93005; 96374; 96375; J2550; J2930; J7611; U0002

== ENCOUNTER 2021-08-27 17:54 | Emergency (ER) | payer MEDICARE, MEDICAID ==
[2021-08-27] MEDS ORDERED: methylPREDNISolone Sod Succ/PF 125 MG/2 ML VIAL ONE (18:04)
[2021-08-27] MEDS ORDERED: Acetaminophen 500 MG TAB ONE (18:36)
[2021-08-27 18:47] LABS: #Basophils 0.1 thou/uL (0.0-0.2); #Eosinphils 0.2 thou/uL (0.0-0.7); #Lymphocytes 2.8 thou/uL (1.20-3.40); #Monocytes 0.6 thou/uL (0.11-0.59); #Neutrophils 3.8 thou/uL (1.40-6.50); %Basophils 1.3 % (0.0-1.0); %Eosinophils 2.1 % (0.0-10.0); %Lymphocytes 37.7 % (21.0-51.0); %Monocytes 8.3 % (0.0-10.0); %Neutrophils 50.7 % (42.0-75.0); Hemoglobin 13.3 g/dL (12.0-16.0); Mean Corpuscular HGB CONC 33.6 g/dL (32.0-36.0); Mean Corpuscular Hemoglobin 32.4 pg (27.0-31.0); Mean Corpuscular Volume 96.5 fL (78.0-98.0); Mean Platelet Volume 5.5 fL (7.4-10.4); Platelet Count 381 thou/uL (130-400); RBC Distribution Width 12.8 % (11.5-14.5); Red Blood Cell (RBC) Count 4.09 mill/uL (4.20-5.40); White Blood Cell (WBC) Count 7.5 thou/uL (4.8-10.8)
[2021-08-27 19:02] LABS: ALT (SGPT) 22 U/L (8-55); AST (SGOT) 17 U/L (5-34); Albumin 3.6 g/dL (3.4-4.8); Alkaline Phosphatase 70 U/L (40-110); Anion Gap 14 mmol/L (10-20); BUN (Urea Nitrogen) 18 mg/dL (9.8-20.1); Bilirubin, Total 0.5 mg/dL (0.2-1.2); Calc. Creatinine Clearance 0 mL/min (70-130); Calcium 8.8 mg/dL (7.8-10.44); Carbon Dioxide 26 mmol/L (23-31); Chloride 105 mmol/L (98-107); Globulin 2.5 g/dL (2.4-3.5); Glucose 114 mg/dL (83-110); Potassium 3.7 mmol/L (3.5-5.1); Protein, Total 6.1 g/dL (5.8-8.1); Sodium 141 mmol/L (136-145)
== END 2021-08-27 19:55 | disposition home or self-care (01) ==
LOC: BURERS 17:54
DX: J44.1 Chronic obstructive pulmonary disease with (acute) exacerbation (principal); I10 Essential (primary) hypertension; E78.5 Hyperlipidemia, unspecified; J44.9 Chronic obstructive pulmonary disease, unspecified; F17.210 Nicotine dependence, cigarettes, uncomplicated
CPT/HCPCS: 71045; 80053; 83880; 84484; 85025; 87040; 93005; 94760; 96374; J2930; J7620

== ENCOUNTER 2021-09-01 00:47 | Inpatient (IN) | payer MEDICARE, MEDICAID ==
[2021-09-01] MEDS ORDERED: Magnesium 2 GM/50 ML BAG (IN WATER) ONE (01:22)
[2021-09-01] MEDS ORDERED: Albuterol Sulfate 2.5 mg/0.5 ml Neb ONE ×2 (01:23→01:24)
[2021-09-01] MEDS ORDERED: Acetaminophen 500 MG TAB ONE ×2 (01:43→01:44)
[2021-09-01 02:58] LABS: ALT (SGPT) 19 U/L (8-55); AST (SGOT) 21 U/L (5-34); Albumin 4.2 g/dL (3.4-4.8); Alkaline Phosphatase 82 U/L (40-110); Anion Gap 16 mmol/L (10-20); Bilirubin, Total 0.6 mg/dL (0.2-1.2); Calc. Creatinine Clearance 0 mL/min (70-130); Calcium 9.3 mg/dL (7.8-10.44); Carbon Dioxide 26 mmol/L (23-31); Chloride 103 mmol/L (98-107); Globulin 2.6 g/dL (2.4-3.5); Glucose 167 mg/dL (83-110); Potassium 3.6 mmol/L (3.5-5.1); Protein, Total 6.8 g/dL (5.8-8.1); Sodium 141 mmol/L (136-145)
[2021-09-01 03:00] LABS: #Basophils 0.1 thou/uL (0.0-0.2); #Eosinphils 0.1 thou/uL (0.0-0.7); #Lymphocytes 1.6 thou/uL (1.20-3.40); #Monocytes 0.3 thou/uL (0.11-0.59); #Neutrophils 12.6 thou/uL (1.40-6.50); %Basophils 0.6 % (0.0-1.0); %Eosinophils 0.4 % (0.0-10.0); %Lymphocytes 10.9 % (21.0-51.0); %Monocytes 2.2 % (0.0-10.0); %Neutrophils 85.9 % (42.0-75.0); Hemoglobin 14.8 g/dL (12.0-16.0); Mean Corpuscular HGB CONC 32.8 g/dL (32.0-36.0); Mean Corpuscular Hemoglobin 32.2 pg (27.0-31.0); Mean Corpuscular Volume 98.4 fL (78.0-98.0); Mean Platelet Volume 5.2 fL (7.4-10.4); Platelet Count 521 thou/uL (130-400); RBC Distribution Width 13.6 % (11.5-14.5); White Blood Cell (WBC) Count 14.7 thou/uL (4.8-10.8)
[2021-09-01 03:03] LABS: BUN (Urea Nitrogen) 19 mg/dL (9.8-20.1)
[2021-09-01] MEDS ORDERED: Albuterol Sulfate 2.5 mg/3 ml Neb NEB PRN (03:53)
[2021-09-01 03:59] LABS: SARS-CoV-2 NAA Rapid Test Not Detected (NotDetected)
[2021-09-01] MEDS ORDERED: Dextrose 5 %-0.45 % NaCl 1,000 ML IV SCH (04:00)
[2021-09-01] MEDS ORDERED: Ondansetron PF 4 MG/2 ML Vial IVP PRN (04:00)
[2021-09-01 05:38] VITALS: BMI 15.4
[2021-09-01] MEDS ORDERED: methylPREDNISolone Sod Succ/PF 125 MG/2 ML VIAL IVP SCH (06:00)
[2021-09-01] MEDS ORDERED: Lorazepam 0.5 MG TAB PO PRN (06:53)
[2021-09-01] MEDS ORDERED: Albuterol 200 PUFF (6.7GM INHALER) INH PRN (06:53)
[2021-09-01] MEDS: Nicotine 14 MG PATCH TOP SCH (08:47)
[2021-09-01] MEDS: Montelukast Sodium 10 mg Tablet PO SCH (08:47)
[2021-09-01] MEDS: Atorvastatin Calcium 10 MG TAB PO SCH (08:47)
[2021-09-01] MEDS: Lisinopril 10 MG TAB PO SCH (08:59)
[2021-09-01] MEDS ORDERED: Non-Formulary Item 1 EACH (Albuterol Sulfate [Proair Hfa] 8.5 GM Hfa.Aer.Ad) INH SCH (09:00)
[2021-09-01] MEDS ORDERED: Propranolol HCl 20 MG TAB PO SCH (09:00)
[2021-09-01] MEDS: Amlodipine 5 MG TAB PO SCH (09:00)
[2021-09-01] MEDS ORDERED: Lisinopril 20 MG TAB PO SCH (09:00)
[2021-09-01] MEDS ORDERED: Non-Formulary Item 1 EACH (Budesonide/Formoterol Fumarate [Budesonide-Formoterol 160-4.5] IH SCH (09:00)
[2021-09-01] MEDS ORDERED: Guaifenesin DM 100-10/5 ML UDCUP PO PRN (09:25)
[2021-09-01] MEDS ORDERED: Albuterol 200 PUFF (6.7GM INHALER) INH SCH (11:00)
[2021-09-01] MEDS: Acetaminophen 325 MG TAB PO PRN (14:45)
[2021-09-01] MEDS: Mometasone/Formoterol 200/5 60 PUFF INH SCH (18:44)
[2021-09-02 05:27] LABS: #Basophils 0.1 thou/uL (0.0-0.2); #Lymphocytes 2.8 thou/uL (1.20-3.40); #Monocytes 0.8 thou/uL (0.11-0.59); #Neutrophils 12.7 thou/uL (1.40-6.50); %Basophils 0.5 % (0.0-1.0); %Eosinophils 0.2 % (0.0-10.0); %Lymphocytes 17.2 % (21.0-51.0); %Monocytes 4.7 % (0.0-10.0); %Neutrophils 77.4 % (42.0-75.0); Hemoglobin 12.6 g/dL (12.0-16.0); Mean Corpuscular HGB CONC 33.2 g/dL (32.0-36.0); Mean Corpuscular Hemoglobin 32.5 pg (27.0-31.0); Mean Corpuscular Volume 97.9 fL (78.0-98.0); Mean Platelet Volume 5.4 fL (7.4-10.4); Platelet Count 436 thou/uL (130-400); RBC Distribution Width 13.4 % (11.5-14.5); Red Blood Cell (RBC) Count 3.88 mill/uL (4.20-5.40); White Blood Cell (WBC) Count 16.4 thou/uL (4.8-10.8)
[2021-09-02 05:43] LABS: Anion Gap 14 mmol/L (10-20); BUN (Urea Nitrogen) 25 mg/dL (9.8-20.1); Calc. Creatinine Clearance 47 mL/min (70-130); Calcium 9.8 mg/dL (7.8-10.44); Carbon Dioxide 25 mmol/L (23-31); Chloride 103 mmol/L (98-107); Glucose 131 mg/dL (83-110); Potassium 4.6 mmol/L (3.5-5.1); Sodium 137 mmol/L (136-145)
[2021-09-02] MEDS: Mometasone/Formoterol 200/5 60 PUFF INH SCH ×2 (06:13→18:04)
[2021-09-02] MEDS: Atorvastatin Calcium 10 MG TAB PO SCH (08:39)
[2021-09-02] MEDS: Montelukast Sodium 10 mg Tablet PO SCH (08:39)
[2021-09-02] MEDS: Propranolol HCl 20 MG TAB PO SCH (08:39)
[2021-09-02] MEDS: Azithromycin 250 MG TAB PO SCH (08:39)
[2021-09-02] MEDS: Amlodipine 5 MG TAB PO SCH (08:40)
[2021-09-02] MEDS: Lisinopril 10 MG TAB PO SCH (08:40)
[2021-09-02] MEDS: Nicotine 14 MG PATCH TOP SCH (08:41)
[2021-09-02] MEDS: methylPREDNISolone Sod Succ/PF 125 MG/2 ML VIAL IVP SCH (08:41)
[2021-09-02] MEDS: Acetaminophen/Codeine 30-300mg Tablet PO PRN (18:02)
[2021-09-02] MEDS: Lorazepam 0.5 MG TAB PO PRN (21:26)
[2021-09-03] MEDS: Mometasone/Formoterol 200/5 60 PUFF INH SCH ×2 (06:10→18:06)
[2021-09-03] MEDS: Lisinopril 10 MG TAB PO SCH (08:04)
[2021-09-03] MEDS: Escitalopram Oxalate 10 mg Tablet PO SCH (08:05)
[2021-09-03] MEDS: Nicotine 14 MG PATCH TOP SCH (08:05)
[2021-09-03] MEDS: Amlodipine 5 MG TAB PO SCH (08:05)
[2021-09-03] MEDS: Azithromycin 250 MG TAB PO SCH (08:05)
[2021-09-03] MEDS: Atorvastatin Calcium 10 MG TAB PO SCH (08:05)
[2021-09-03] MEDS: Montelukast Sodium 10 mg Tablet PO SCH (08:05)
[2021-09-03] MEDS: Propranolol HCl 20 MG TAB PO SCH (08:06)
[2021-09-03] MEDS: methylPREDNISolone Sod Succ/PF 125 MG/2 ML VIAL IVP SCH (08:09)
[2021-09-03] MEDS: Ondansetron ODT 4 MG TAB SL PRN (15:20)
[2021-09-03] MEDS: Lorazepam 0.5 MG TAB PO PRN (20:30)
[2021-09-04] MEDS: Mometasone/Formoterol 200/5 60 PUFF INH SCH ×2 (06:16→18:10)
[2021-09-04] MEDS: Atorvastatin Calcium 10 MG TAB PO SCH (07:53)
[2021-09-04] MEDS: Amlodipine 5 MG TAB PO SCH (07:53)
[2021-09-04] MEDS: methylPREDNISolone Sod Succ/PF 125 MG/2 ML VIAL IVP SCH (07:53)
[2021-09-04] MEDS: Propranolol HCl 20 MG TAB PO SCH (07:54)
[2021-09-04] MEDS: Lisinopril 10 MG TAB PO SCH (07:54)
[2021-09-04] MEDS: Escitalopram Oxalate 10 mg Tablet PO SCH (07:54)
[2021-09-04] MEDS: Nicotine 14 MG PATCH TOP SCH (07:56)
[2021-09-04] MEDS: Montelukast Sodium 10 mg Tablet PO SCH (07:56)
[2021-09-04] MEDS: Azithromycin 250 MG TAB PO SCH (07:56)
[2021-09-04] MEDS: Acetaminophen/Codeine 30-300mg Tablet PO PRN ×2 (12:20→21:05)
[2021-09-05] MEDS: Mometasone/Formoterol 200/5 60 PUFF INH SCH ×2 (06:02→21:03)
[2021-09-05] MEDS: Lisinopril 10 MG TAB PO SCH (08:25)
[2021-09-05] MEDS: Amlodipine 5 MG TAB PO SCH (08:26)
[2021-09-05] MEDS: Escitalopram Oxalate 10 mg Tablet PO SCH (08:26)
[2021-09-05] MEDS: Azithromycin 250 MG TAB PO SCH (08:26)
[2021-09-05] MEDS: Nicotine 14 MG PATCH TOP SCH (08:26)
[2021-09-05] MEDS: Montelukast Sodium 10 mg Tablet PO SCH (08:26)
[2021-09-05] MEDS: Atorvastatin Calcium 10 MG TAB PO SCH (08:26)
[2021-09-05] MEDS: Propranolol HCl 20 MG TAB PO SCH (08:27)
[2021-09-05] MEDS: Ondansetron ODT 4 MG TAB SL PRN (11:54)
[2021-09-06] MEDS: Nicotine 14 MG PATCH TOP SCH (09:38)
[2021-09-06] MEDS: Amlodipine 5 MG TAB PO SCH (09:40)
[2021-09-06] MEDS: Escitalopram Oxalate 10 mg Tablet PO SCH (09:41)
[2021-09-06] MEDS: Montelukast Sodium 10 mg Tablet PO SCH (09:41)
[2021-09-06] MEDS: Atorvastatin Calcium 10 MG TAB PO SCH (09:41)
[2021-09-06] MEDS: Azithromycin 250 MG TAB PO SCH (09:42)
[2021-09-06] MEDS: Lisinopril 10 MG TAB PO SCH (09:42)
[2021-09-06] MEDS: Mometasone/Formoterol 200/5 60 PUFF INH SCH ×2 (09:43→20:13)
[2021-09-06] MEDS: Acetaminophen 325 MG TAB PO PRN (16:31)
[2021-09-06] MEDS: Lorazepam 0.5 MG TAB PO PRN (20:11)
[2021-09-07] MEDS: Acetaminophen 325 MG TAB PO PRN ×2 (05:10→12:37)
[2021-09-07] MEDS: Azithromycin 250 MG TAB PO SCH (08:14)
[2021-09-07] MEDS: Nicotine 14 MG PATCH TOP SCH (08:14)
[2021-09-07] MEDS: Atorvastatin Calcium 10 MG TAB PO SCH (08:15)
[2021-09-07] MEDS: Montelukast Sodium 10 mg Tablet PO SCH (08:15)
[2021-09-07] MEDS: Escitalopram Oxalate 10 mg Tablet PO SCH (08:15)
[2021-09-07] MEDS: Lisinopril 10 MG TAB PO SCH (08:18)
[2021-09-07] MEDS: Amlodipine 5 MG TAB PO SCH (08:19)
[2021-09-07] MEDS: Mometasone/Formoterol 200/5 60 PUFF INH SCH ×2 (08:20→21:45)
[2021-09-08] MEDS: Montelukast Sodium 10 mg Tablet PO SCH (09:57)
[2021-09-08] MEDS: Nicotine 14 MG PATCH TOP SCH (09:58)
[2021-09-08] MEDS: Escitalopram Oxalate 10 mg Tablet PO SCH (09:58)
[2021-09-08] MEDS: Atorvastatin Calcium 10 MG TAB PO SCH (09:58)
[2021-09-08] MEDS: Mometasone/Formoterol 200/5 60 PUFF INH SCH (10:08)
[2021-09-08] MEDS: Acetaminophen 325 MG TAB PO PRN (10:16)
[2021-09-08 13:44] LABS: SARS-CoV-2 PCR by NAA Not Detected (NotDetected)
[2021-09-08 18:27] VITALS: BP 154/75; TEMP 98.8
[2021-09-08] MEDS ORDERED: valACYclovir 500 MG TAB PO SCH (21:00)
== END 2021-09-08 18:45 | disposition home or self-care (01) | DRG 189 ==
LOC: BURERS 00:47 → BURMED 02:46
PROVIDERS: ADMIT Family Medicine; ATTEND Family Medicine
DX: J96.21 Acute and chronic respiratory failure with hypoxia (principal); J18.9 Pneumonia, unspecified organism; J44.1 Chronic obstructive pulmonary disease with (acute) exacerbation; J44.0 Chronic obstructive pulmonary disease with (acute) lower respiratory infection; I10 Essential (primary) hypertension; E78.5 Hyperlipidemia, unspecified; F17.210 Nicotine dependence, cigarettes, uncomplicated; F41.1 Generalized anxiety disorder; F31.9 Bipolar disorder, unspecified; G43.909 Migraine, unspecified, not intractable, without status migrainosus; Z20.822 Contact with and (suspected) exposure to COVID-19; Z90.710 Acquired absence of both cervix and uterus; Z98.890 Other specified postprocedural states; Z90.89 Acquired absence of other organs; Z90.721 Acquired absence of ovaries, unilateral; Z88.0 Allergy status to penicillin; Z88.8 Allergy status to other drugs, medicaments and biological substances
CPT/HCPCS: 36415; 71045; 80048; 80053; 83880; 84484; 85025; 94640; 94664; 94760; 96374; J2930; J3475; J7042; J7611; J7620; Q0162; U0002; U0003; U0005

== ENCOUNTER 2021-09-20 22:23 | Emergency (ER) | payer MEDICARE, OTHER ==
[2021-09-20] MEDS ORDERED: methylPREDNISolone Sod Succ/PF 125 MG/2 ML VIAL ONE (23:12)
[2021-09-20 23:27] LABS: Hemoglobin 15.4 g/dL (12.0-16.0); Mean Corpuscular HGB CONC 32.7 g/dL (32.0-36.0); Mean Corpuscular Hemoglobin 32.3 pg (27.0-31.0); Mean Corpuscular Volume 98.8 fL (78.0-98.0); Mean Platelet Volume 5.8 fL (7.4-10.4); Platelet Count 381 thou/uL (130-400); RBC Distribution Width 13.5 % (11.5-14.5); Red Blood Cell (RBC) Count 4.75 mill/uL (4.20-5.40)
[2021-09-20 23:33] LABS: ALT (SGPT) 22 U/L (8-55); AST (SGOT) 21 U/L (5-34); Albumin 4.3 g/dL (3.4-4.8); Alkaline Phosphatase 65 U/L (40-110); Anion Gap 20 mmol/L (10-20); BUN (Urea Nitrogen) 17 mg/dL (9.8-20.1); Bilirubin, Total 0.4 mg/dL (0.2-1.2); Calc. Creatinine Clearance 0 mL/min (70-130); Calcium 9.8 mg/dL (7.8-10.44); Carbon Dioxide 20 mmol/L (23-31); Chloride 108 mmol/L (98-107); Globulin 2.7 g/dL (2.4-3.5); Glucose 113 mg/dL (83-110); Sodium 144 mmol/L (136-145)
[2021-09-20 23:51] LABS: Base Excess-Venous -1.3 mmol/L (-2.0 to 3.0); Bicarbonate (HCO3v) 24.5 mmol/L (22.0-28.0); CO2 Tension (PvCO2) 43.7 mmHg (42.0-51.0); Calcium, Ionized 1.19 mmol/L (1.15-1.33); Chloride 108 mmol/L (98-107); Hemoglobin - Calc 16.2 g/dL (12.0-16.0); Potassium 3.8 mmol/L (3.5-5.1); Sodium 142 mmol/L (138-145); T. Carbon Dioxide 25.8 mmol/L (22.0-28.0); vO2 Saturation-calc 98.7 % (60.0-85.0)
[2021-09-21] MEDS ORDERED: Budesonide 0.5 MG/2 ML NEB ONE
[2021-09-21] MEDS ORDERED: Ondansetron PF 4 MG/2 ML Vial ONE (00:55)
[2021-09-21] MEDS ORDERED: Morphine 4 MG/ML VIAL ONE (00:56)
[2021-09-21 01:16] LABS: Eosinophils 4 % (0-10); Lymphocytes 37 % (21-51); MDiff Complete? YES; Monocytes 4 % (0-10); Neutrophil 53 % (42-75); Reactive Lymphocytes 2 % (0-10)
== END 2021-09-21 04:46 | disposition home or self-care (01) ==
LOC: BURERS 22:23
DX: J44.1 Chronic obstructive pulmonary disease with (acute) exacerbation (principal); E78.5 Hyperlipidemia, unspecified; I10 Essential (primary) hypertension; F17.210 Nicotine dependence, cigarettes, uncomplicated
CPT/HCPCS: 36415; 71045; 80053; 82330; 82435; 82803; 84132; 84295; 84484; 85014; 85025; 93005; 94640; 96374; 96375; J2270; J2405; J2930; J7620; J7626